=== PATIENT | male | born 1960 ===

== ENCOUNTER 2018-04-09 20:57 | Inpatient (IN) | payer MEDICAID ==
[2018-04-09 21:03] VITALS: BMI 25.2
--- NOTE | 2018-04-09 21:17 | CP.PCM.HP ---
History of Present Illness - History of Present Illness History of Present Illness: PMD: Dr Eden Chief Complaint: Left side weakness The patient was seen and examined on the Rehab Unit HPI: The hx is obtained from the patient and after review of the Radiological, laboratory and the medical records. This is a 57 years old male transferred from the [facility] for Rehabilitation. He has hx of DM, HTN and was admitted at the [facility] on 04/05/18 with diagnosis of acute CVA and left side weakness. The weakness at the left upper extremity has improved minimally, he is unstable on the left lower extremity and the left facial droop is the same. No headache, nausea, vomits, SOB, chest pain nor palpitation. No urinary symptoms but hje is constipated. PMH: HTN; DM II; HLD; PTSD; Depression; Psoriasis PSHJ: Right Tibial Surgery SH: On Disability; Uses Marijuana; Hx of Alcohol abuse; Former Smoker FH: Brother with Depression Allergies: NKDA Medication: Reviewed Present on Admission - Present on Admission Any Indicators Present on Admission: No History of DVT/PE: No History of Uncontrolled Diabetes: No Urinary Catheter: No Decubitus Ulcer Present: No Review of Systems - Constitutional Constitutional: absent: Anorexia, Chills, Fever, Headache - EENT Eyes: Requires Corrective Lenses. absent: Blurred Vision, Diplopia Ears: absent: Decreased Hearing, Ear Discharge, Tinnitus Nose/Mouth/Throat: Epistaxis, Nasal Congestion, Nasal Discharge, Sinus Pain, Sinus Pressure - Cardiovascular Cardiovascular: absent: Chest Pain, Dyspnea, Edema - Respiratory Respiratory: absent: Cough, Dyspnea, Hemoptysis, Wheezing, Stridor - Gastrointestinal Gastrointestinal: Constipation. absent: Abdominal Pain, Diarrhea, Nausea, Vomiting - Genitourinary Genitourinary: absent: Dysuria, Flank Pain, Hematuria - Musculoskeletal Musculoskeletal: Muscle Weakness. absent: Arthralgias, Back Pain, Numbness - Integumentary Integumentary: absent: Pruritus, Rash, Skin Ulcer, Sores, Striae, Swelling - Neurological Neurological: Focal Weakness. absent: Confusion, Dizziness, Headaches, Paresthesias - Psychiatric Psychiatric: Depression - Endocrine Endocrine: absent: Palpitations, Polydipsia, Polyphagia, Polyuria - Hematologic/Lymphatic Hematologic: absent: Easy Bleeding, Easy Bruising Past Patient History - Infectious Disease Hx of Infectious Diseases: None - Past Medical History & Family History Past Medical History?: Yes - Past Social History Smoking Status: Former Smoker Chewing Tobacco Use: No Cigar Use: No Alcohol: Social Drugs: Cannabis - CARDIAC Hx Hypercholesterolemia: Yes Hx Hypertension: Yes - PULMONARY Hx Respiratory Disorders: No - NEUROLOGICAL Hx Neurological Disorder: No HX Cerebrovascular Accident: Yes Hx Seizures: No - HEENT Hx HEENT Problems: No - RENAL Hx Chronic Kidney Disease: No - ENDOCRINE/METABOLIC Hx Diabetes Mellitus Type 2: Yes - HEMATOLOGICAL/ONCOLOGICAL Hx Blood Disorders: No - INTEGUMENTARY Hx Dermatological Problems: No - MUSCULOSKELETAL/RHEUMATOLOGICAL Hx Falls: No - GASTROINTESTINAL Hx Gastrointestinal Disorders: No - GENITOURINARY/GYNECOLOGICAL Hx Sexually Transmitted Disorders: No - PSYCHIATRIC Hx Anxiety: Yes Hx Depression: Yes Hx Post Traumatic Stress Disorder: Yes Hx Substance Use: No - SURGICAL HISTORY Hx Orthopedic Surgery: Yes (RT LEG SX) - ANESTHESIA Hx Anesthesia: Yes Hx Anesthesia Reactions: No Hx Malignant Hyperthermia: No Meds Allergies/Adverse Reactions: Allergies Allergy/AdvReac Type Severity Reaction Status Date / Time No Known Allergies Allergy Verified 04/05/18 17:05 Physical Exam - Constitutional Appears: No Acute Distress - Head Exam Head Exam: ATRAUMATIC, NORMOCEPHALIC - Eye Exam Eye Exam: EOMI, Normal appearance Pupil Exam: NORMAL ACCOMODATION, PERRL - ENT Exam ENT Exam: Mucous Membranes Moist, Normal Exam, Normal External Ear Exam - Neck Exam Neck exam: Positive for: Full Rom, Normal Inspection. Negative for: Lymphadenopathy, Tenderness - Respiratory Exam Respiratory Exam: Clear to Auscultation Bilateral. absent: Rales, Rhonchi, Wheezes - Cardiovascular Exam Cardiovascular Exam: REGULAR RHYTHM, RRR, +S1, +S2. absent: Gallop, JVD - GI/Abdominal Exam GI & Abdominal Exam: Normal Bowel Sounds, Soft. absent: Mass, Organomegaly, Tenderness - Rectal Exam Rectal Exam: Deferred - Extremities Exam Extremities exam: Positive for: normal inspection. Negative for: calf tenderness, full ROM - Back Exam Back exam: NORMAL INSPECTION. absent: CVA tenderness (L), CVA tenderness (R) - Neurological Exam Neurological exam: Alert, Oriented x3, Reflexes Normal Additional comments: Left facial droop with tongue deviated to the left. Motor strength of left upper extremity 3/5 and gifty left lower extremity 4/5 - Psychiatric Exam Psychiatric exam: Normal Affect, Normal Mood - Skin Skin Exam: Dry, Intact, Normal Color, Warm Results - Imaging and Cardiology Chest x-ray Status: Image reviewed by me, Report reviewed by me Additional comment: 04/05/2018 17:30 Chest X-Ray IMPRESSION: Suspect minor bibasilar atelectasis and or scarring left greater than right. Dictator: Sp Spain MD CTA Head and Neck Status: Report reviewed by me Additional comment: 04/05/2018 17:30 Head/Neck CTA IMPRESSION: No evidence of occlusion or significant stenosis despite some very minor calcified atherosclerotic plaque both cavernous carotid segments. No evidence of large aneurysm norvascular malformation. Dictator: Sp Spain MD CT scan - head Status: Image reviewed by me, Report reviewed by me Additional comment: 04/05/2018 17:[address] IMPRESSION: Mild diffuse and confluent chronic white matter ischemic changes seen extending perpherally into the deep white matter both cerebral hemispheres. In addition, there are multiple of bilateral basal nuclei lacunar type infarcts several of which are chronic in appearance and others age-indeterminate; and in particular one infarct in the superior right basal ganglia extending into the right bautista radiata could be acute.. Clinical correlation recommended. Moderate generaluzed volume loss. D Assessment & Plan - Assessment and Plan (Free Text) Assessment: #. Acute CVA #. HTN #. DM II #. HLD #. Depression Plan: 57 years old male transferred from the [facility] for Rehabilitation. He has hx of DM, HTN and was admitted at the [facility] on 04/05/18 with diagnosis of acute CVA and left side weakness. #. Acute right Basal ganglia CVA - Consult Dr Bradley the Last Dipper - ASA - Plavix For 20 days, then continue with ASA as monotherapy indefinitely - Atorvastatin - OT/PT - Follow up with Neurology Dr Borja after discharge #. HTN uncontrolled - Metoprolol/ Losartan/ Norvasc - Titrate for BP control #. DM II - Lispro sliding scale according to Accucheck ACHS - Meformin #. HLD. - Lipid panel showed elevated cholesterol and LDL - Atorvastatin #. Depression - Prozac/ Seroquel #. Stress ulcer Prophylaxis with Pantoprazole #. DVT Prophylaxis with Lovenox #. Code Status: Full - Date & Time Date: 04/09/18 Time: 21:17
[2018-04-09] MEDS: Insulin Lispro (humaLOG) 100 Units/ml Inj SC SCH (23:01)
[2018-04-10] MEDS ORDERED: Magnesium Hydroxide Susp 30 ml UD PO PRN (00:19)
[2018-04-10 06:22] LABS: INR 1.1; PROTHROMBIN TIME 12.9 Seconds (9.8-13.1)
[2018-04-10 06:25] LABS: PARTIAL THROMBOPLASTIN TIME 36.7 Seconds (25.6-37.1)
[2018-04-10 06:29] LABS: BASO % 0.4 % (0.0-2.0); EOS # 0.2 K/uL (0.0-0.7); EOS % 1.2 % (0.0-4.0); HEMOGLOBIN 14.2 g/dL (12.0-18.0); LYMPH # 1.5 K/uL (1.0-4.3); LYMPH % 12.4 % (20.0-40.0); MEAN CORPUSCULAR HEMOGLOBIN 31.4 pg (27.0-31.0); MEAN CORPUSCULAR HGB CONC 33.8 g/dL (33.0-37.0); MEAN PLATELET VOLUME 9.3 fl (7.2-11.7); MONO % 8.1 % (0.0-10.0); NEUT # 9.7 K/uL (1.8-7.0); NEUT % 77.9 % (50.0-75.0); NRBC % 0.1 % (0.0-0.0); RBC 4.52 Mil/uL (4.40-5.90); RED CELL DISTRIBUTION WIDTH 13.5 % (11.5-14.5); WHITE BLOOD COUNT 12.4 K/uL (4.8-10.8)
[2018-04-10 06:30] LABS: BLOOD UREA NITROGEN 29 mg/dl (9-20); CALCIUM 9.8 mg/dL (8.4-10.2); GFR NON-AFRICAN AMERICAN > 60
[2018-04-10] MEDS: Insulin Lispro (humaLOG) 100 Units/ml Inj SC SCH ×4 (07:38→21:48)
[2018-04-10] MEDS: Multivitamin With Minerals Tab PO SCH (09:09)
[2018-04-10] MEDS: Pantoprazole 40 mg EC Tab PO SCH (09:10)
[2018-04-10] MEDS: Enoxaparin 40 mg Syringe SC SCH (11:14)
--- NOTE | 2018-04-10 18:07 | PCM.OPOC ---
Physiatry Overall Plan of Care - Overall Plan of Care Estimated Length of Stay in Weeks: 2 Rehab Impairment: Mobility, Gait, Speech, Balance, Coordination Etiologic Diagnosis: Cerebrovascular Accident Rehab/Medical Prognosis: Fair - Anticipated Interventions Physical Therapy:: Yes Occupational Therapy:: Yes Speech Therapy:: Yes Recreational Therapy:: Yes - Therapy Goals Bed Mobility: Independent Ambulation: Independent Functional Positional Changes:: Independent - Discharge Plan Identification of Barriers to Discharge: Home Situation Discharge Destination: Home
--- NOTE | 2018-04-10 18:09 | CP.PCM.CON ---
History of Present Illness - History of Present Illness History of Present Illness: Dr Bradley PMR consultation on Gary Fuchs, born 1960, who has been admitted to [facility] for acute inpatient rehabilitation following a right CVA MCA distribution with a left UE>LE weakness. There is facial droop and some dysarthria/dysphagia as well. Previously very independent Review of Systems - Constitutional Constitutional: absent: Chills - EENT Eyes: absent: Change in Vision Ears: absent: Ear Discharge, Ear Pain Nose/Mouth/Throat: absent: Nasal Congestion, Nasal Discharge - Cardiovascular Cardiovascular: absent: Chest Pain, Chest Pain at Rest, Leg Edema - Respiratory Respiratory: absent: Cough, Dyspnea on Exertion, Wheezing - Gastrointestinal Gastrointestinal: absent: Belching, Constipation - Musculoskeletal Musculoskeletal: absent: Back Pain - Integumentary Integumentary: absent: Wounds - Psychiatric Psychiatric: absent: Anxiety Past Patient History - Infectious Disease Hx of Infectious Diseases: None - Past Medical History & Family History Past Medical History?: Yes - Past Social History Smoking Status: Former Smoker Chewing Tobacco Use: No Cigar Use: No Alcohol: Social Drugs: Cannabis - CARDIAC Hx Hypertension: Yes - PULMONARY Hx Chronic Obstructive Pulmonary Disease (COPD): No - NEUROLOGICAL HX Cerebrovascular Accident: Yes - HEENT Hx HEENT Problems: No - RENAL Hx Renal Failure: No - ENDOCRINE/METABOLIC Hx Diabetes Mellitus Type 2: Yes - HEMATOLOGICAL/ONCOLOGICAL Hx Blood Disorders: No - INTEGUMENTARY Hx Dermatological Problems: No - MUSCULOSKELETAL/RHEUMATOLOGICAL Hx Arthritis: No - GASTROINTESTINAL Hx Gastrointestinal Disorders: No - GENITOURINARY/GYNECOLOGICAL Hx Sexually Transmitted Disorders: No - PSYCHIATRIC Hx Anxiety: Yes Hx Depression: Yes Hx Post Traumatic Stress Disorder: Yes Hx Substance Use: No - SURGICAL HISTORY Hx Orthopedic Surgery: Yes (RT LEG SX) - ANESTHESIA Hx Anesthesia: Yes Hx Anesthesia Reactions: No Hx Malignant Hyperthermia: No Meds Allergies/Adverse Reactions: Allergies Allergy/AdvReac Type Severity Reaction Status Date / Time No Known Allergies Allergy Verified 04/05/18 17:05 - Medications Medications: Current Medications Acetaminophen (Tylenol 325mg Tab) 650 mg PO Q4 PRN PRN Reason: Fever >100.4 F Last Admin: 04/10/18 11:12 Dose: 650 mg Amlodipine Besylate (Norvasc) 10 mg PO DAILY [facility] Last Admin: 04/10/18 10:25 Dose: 10 mg Aspirin (Aspirin Chewable) 81 mg PO DAILY [facility] Last Admin: 04/10/18 09:03 Dose: 81 mg Atorvastatin Calcium (Lipitor) 40 mg PO DAILY [facility] Last Admin: 04/10/18 09:10 Dose: 40 mg Clopidogrel Bisulfate (Plavix) 75 mg PO DAILY [facility] Last Admin: 04/10/18 09:07 Dose: 75 mg Docusate Sodium (Colace) 100 mg PO BID [facility] Last Admin: 04/10/18 17:26 Dose: 100 mg Enoxaparin Sodium (Lovenox) 40 mg SC DAILY [facility]; Protocol Last Admin: 04/10/18 11:14 Dose: 40 mg Fluoxetine HCl (Prozac) 20 mg PO DAILY [facility] Last Admin: 04/10/18 09:09 Dose: 20 mg Insulin Human Lispro (Humalog) 0 units SC [facility]; Protocol Last Admin: 04/10/18 17:23 Dose: Not Given Losartan Potassium (Cozaar) 25 mg PO DAILY [facility] Last Admin: 04/10/18 10:22 Dose: 25 mg Magnesium Hydroxide (Milk Of Magnesia) 30 ml PO DAILY PRN PRN Reason: Constipation Metformin HCl (Glucophage) 500 mg PO BIDWM [facility] Last Admin: 04/10/18 17:25 Dose: 500 mg Metoprolol Tartrate (Lopressor) 25 mg PO BID [facility] Last Admin: 04/10/18 17:26 Dose: 25 mg Multivitamins/Minerals (Therapeutic-M Tab) 1 tab PO DAILY [facility] Last Admin: 04/10/18 09:09 Dose: 1 tab Pantoprazole Sodium (Protonix Ec Tab) 40 mg PO DAILY [facility] Last Admin: 04/10/18 09:10 Dose: 40 mg Quetiapine Fumarate (Seroquel) 100 mg PO HS [facility] Last Admin: 04/09/18 23:00 Dose: 100 mg Physical Exam - Constitutional Appears: Non-toxic, No Acute Distress - Head Exam Head Exam: ATRAUMATIC, NORMAL INSPECTION, NORMOCEPHALIC - Eye Exam Eye Exam: EOMI - ENT Exam ENT Exam: Mucous Membranes Moist - Respiratory Exam Respiratory Exam: NORMAL BREATHING PATTERN - Cardiovascular Exam Cardiovascular Exam: REGULAR RHYTHM - GI/Abdominal Exam GI & Abdominal Exam: Normal Bowel Sounds. absent: Firm - Extremities Exam Extremities exam: Negative for: calf tenderness - Neurological Exam Neurological exam: Alert, Oriented x3 - Expanded Neurological Exam Expanded Patient oriented to: person, place, time Speech: Slurred Speech Neuro motor strength exam: Left Upper Extremity: 2/1 (proximal 0/5 distal), Right Upper Extremity: 5, Left Lower Extremity: 5, Right Lower Extremity: 5 Coma Scale Eye Opening: SPONTANEOUS Coma Scale Motor Response: OBEYS COMMANDS Coma Scale Verbal: Oriented Coma Scale Total: 15 - Psychiatric Exam Psychiatric exam: Normal Affect, Normal Mood - Skin Skin Exam: Warm Results - Vital Signs Recent Vital Signs: Last Vital Signs Temp 98.2 F 04/10/18 09:40 Pulse 83 04/10/18 17:26 Resp 18 04/10/18 09:40 BP 138/67 04/10/18 17:26 Pulse Ox 98 04/10/18 09:40 - Labs Result Diagrams: 04/10/18 06:00 04/10/18 06:00 Labs: Laboratory Results - last 24 hr 04/09/18 04/10/18 04/10/18 22:02 06:00 06:00 WBC 12.4 H RBC 4.52 Hgb 14.2 Hct 42.0 MCV 93.0 MCH 31.4 H MCHC 33.8 RDW 13.5 Plt Count 235 MPV 9.3 Neut % (Auto) 77.9 H Lymph % (Auto) 12.4 L [place] % (Auto) 8.1 Eos % (Auto) 1.2 Baso % (Auto) 0.4 Neut # (Auto) 9.7 H Lymph # (Auto) 1.5 [place] # (Auto) 1.0 H Eos # (Auto) 0.2 Baso # (Auto) 0.0 PT INR APTT Sodium 139 Potassium 4.6 Chloride 98 Carbon Dioxide 28 Anion Gap 18 BUN 29 H Creatinine 1.2 Est GFR ( Amer) > 60 Est GFR (Non-Af Amer) > 60 POC Glucose (mg/dL) 88 Random Glucose 107 Calcium 9.8 04/10/18 04/10/18 04/10/18 06:00 06:52 10:56 WBC RBC Hgb Hct MCV MCH MCHC RDW Plt Count MPV Neut % (Auto) Lymph % (Auto) [place] % (Auto) Eos % (Auto) Baso % (Auto) Neut # (Auto) Lymph # (Auto) [place] # (Auto) Eos # (Auto) Baso # (Auto) PT 12.9 INR 1.1 APTT 36.7 Sodium Potassium Chloride Carbon Dioxide Anion Gap BUN Creatinine Est GFR ( Amer) Est GFR (Non-Af Amer) POC Glucose (mg/dL) 92 145 H Random Glucose Calcium 04/10/18 15:42 WBC RBC Hgb Hct MCV MCH MCHC RDW Plt Count MPV Neut % (Auto) Lymph % (Auto) [place] % (Auto) Eos % (Auto) Baso % (Auto) Neut # (Auto) Lymph # (Auto) [place] # (Auto) Eos # (Auto) Baso # (Auto) PT INR APTT Sodium Potassium Chloride Carbon Dioxide Anion Gap BUN Creatinine Est GFR ( Amer) Est GFR (Non-Af Amer) POC Glucose (mg/dL) 114 H Random Glucose Calcium Assessment & Plan - Assessment and Plan (Free Text) Assessment: PT/OT to continue to help increase functional independence Team conference for d/c planning Pain: controlled Vascular: no evidence of DVT GI: No evidence of constipation or diarrhea Impairment code 01.1 Patient is an excellent acute rehabilitation candidate and will have focused speech, PT, OT and recreational therapy to help facilitate a safe and appropri ate d/c plan
[2018-04-11] MEDS: Insulin Lispro (humaLOG) 100 Units/ml Inj SC SCH ×4 (06:30→21:01)
[2018-04-11 08:10] LABS: URINE BILIRUBIN NEGATIVE (NEGATIVE); URINE BLOOD NEGATIVE (NEGATIVE); URINE CLARITY SLIGHTY-CLOUDY (Clear); URINE COLOR YELLOW (YELLOW); URINE GLUCOSE (UA) NEG (NEGATIVE); URINE HYALINE CAST 0-2 /hpf (0-2); URINE LEUKOCYTE ESTERASE NEG Leu/uL (Negative); URINE PROTEIN 30 mg/dL (NEGATIVE); URINE UROBILINOGEN 0.2-1.0 mg/dL (0.2-1.0)
[2018-04-11] MEDS: Pantoprazole 40 mg EC Tab PO SCH (08:44)
[2018-04-11] MEDS: Multivitamin With Minerals Tab PO SCH (08:45)
[2018-04-11] MEDS: Enoxaparin 40 mg Syringe SC SCH (08:45)
--- NOTE | 2018-04-11 09:21 | CP.PCM.PN ---
Subjective - Date & Time of Evaluation Date of Evaluation: 04/11/18 Time of Evaluation: 09:21 - Subjective Subjective: participating well with PT no complaints hd stable nad Objective - Vital Signs/Intake and Output Vital Signs (last 24 hours): Temp Pulse Resp BP Pulse Ox 98.1 F 82 20 130/80 98 04/10/18 20:45 04/11/18 08:46 04/10/18 23:22 04/11/18 08:46 04/10/18 23:22 Intake and Output: Vitals Reviewed GEN: WDWN, alert, cooperative HEENT: NCAT, PERRL, EOMI HEART: RRR, +S1S2, NO MRG LUNG: CTAB, NO WRR ABD: soft, NT, ND, No HSM, No masses EXT: normal pedal pulses NEURO: awake, alert SKIN: warm, dry PSYCH: normal mood, normal affect - Medications Medications: Current Medications Acetaminophen (Tylenol 325mg Tab) 650 mg PO Q4 PRN PRN Reason: Fever >100.4 F Last Admin: 04/10/18 11:12 Dose: 650 mg Amlodipine Besylate (Norvasc) 10 mg PO DAILY [facility] Last Admin: 04/11/18 08:44 Dose: 10 mg Aspirin (Aspirin Chewable) 81 mg PO DAILY [facility] Last Admin: 04/11/18 08:44 Dose: 81 mg Atorvastatin Calcium (Lipitor) 40 mg PO DAILY [facility] Last Admin: 04/11/18 08:47 Dose: 40 mg Clopidogrel Bisulfate (Plavix) 75 mg PO DAILY [facility] Last Admin: 04/11/18 08:46 Dose: 75 mg Docusate Sodium (Colace) 100 mg PO BID [facility] Last Admin: 04/11/18 08:44 Dose: 100 mg Enoxaparin Sodium (Lovenox) 40 mg SC DAILY [facility]; Protocol Last Admin: 04/11/18 08:45 Dose: 40 mg Fluoxetine HCl (Prozac) 20 mg PO DAILY [facility] Last Admin: 04/11/18 08:46 Dose: 20 mg Insulin Human Lispro (Humalog) 0 units SC [facility]; Protocol Last Admin: 04/11/18 06:30 Dose: Not Given Losartan Potassium (Cozaar) 25 mg PO DAILY [facility] Last Admin: 04/10/18 10:22 Dose: 25 mg Magnesium Hydroxide (Milk Of Magnesia) 30 ml PO DAILY PRN PRN Reason: Constipation Metformin HCl (Glucophage) 500 mg PO BIDWM [facility] Last Admin: 04/11/18 08:44 Dose: 500 mg Metoprolol Tartrate (Lopressor) 25 mg PO BID [facility] Last Admin: 04/11/18 08:46 Dose: 25 mg Multivitamins/Minerals (Therapeutic-M Tab) 1 tab PO DAILY [facility] Last Admin: 04/11/18 08:45 Dose: 1 tab Pantoprazole Sodium (Protonix Ec Tab) 40 mg PO DAILY [facility] Last Admin: 04/11/18 08:44 Dose: 40 mg Quetiapine Fumarate (Seroquel) 100 mg PO HS [facility] Last Admin: 04/10/18 21:58 Dose: 100 mg - Labs Labs: 04/10/18 06:00 04/10/18 06:00 PT 12.9 Seconds (9.8-13.1) 04/10/18 06:00 INR 1.1 04/10/18 06:00 APTT 36.7 Seconds (25.6-37.1) 04/10/18 06:00 Assessment and Plan - Assessment and Plan (Free Text) Plan: 57 years old male transferred from the [facility] ([facility] for Re habilitation. He has hx of DM, HTN and was admitted at the [facility] on 04/05/18 with diagnosis of acute CVA and left side weakness. #. Acute right Basal ganglia CVA - Consult Dr Bradley the Systems Mgr - ASA - Plavix For 20 days, then continue with ASA as monotherapy indefinitely - Atorvastatin - OT/PT - Follow up with Neurology Dr Borja after discharge #. HTN uncontrolled - Metoprolol/ Losartan/ Norvasc - Titrate for BP control #. DM II - Lispro sliding scale according to Accucheck ACHS - Meformin #. HLD. - Lipid panel showed elevated cholesterol and LDL - Atorvastatin #. Depression - Prozac/ Seroquel #. Stress ulcer Prophylaxis with Pantoprazole #. DVT Prophylaxis with Lovenox #. Code Status: Full
--- NOTE | 2018-04-11 18:42 | CP.PCM.PN ---
Subjective - Date & Time of Evaluation Date of Evaluation: 04/11/18 Time of Evaluation: 18:39 - Subjective Subjective: patient seen in the room in good spirits feels better Objective - Vital Signs/Intake and Output Vital Signs (last 24 hours): Temp Pulse Resp BP Pulse Ox 98 F 78 20 120/80 98 04/11/18 08:00 04/11/18 16:51 04/11/18 08:00 04/11/18 16:51 04/11/18 08:00 - Medications Medications: Current Medications Acetaminophen (Tylenol 325mg Tab) 650 mg PO Q4 PRN PRN Reason: Fever >100.4 F Last Admin: 04/10/18 11:12 Dose: 650 mg Amlodipine Besylate (Norvasc) 10 mg PO DAILY [facility] Last Admin: 04/11/18 08:44 Dose: 10 mg Aspirin (Aspirin Chewable) 81 mg PO DAILY [facility] Last Admin: 04/11/18 08:44 Dose: 81 mg Atorvastatin Calcium (Lipitor) 40 mg PO DAILY [facility] Last Admin: 04/11/18 08:47 Dose: 40 mg Clopidogrel Bisulfate (Plavix) 75 mg PO DAILY [facility] Last Admin: 04/11/18 08:46 Dose: 75 mg Docusate Sodium (Colace) 100 mg PO BID [facility] Last Admin: 04/11/18 16:50 Dose: 100 mg Enoxaparin Sodium (Lovenox) 40 mg SC DAILY [facility]; Protocol Last Admin: 04/11/18 08:45 Dose: 40 mg Fluoxetine HCl (Prozac) 20 mg PO DAILY [facility] Last Admin: 04/11/18 08:46 Dose: 20 mg Insulin Human Lispro (Humalog) 0 units SC [facility]; Protocol Last Admin: 04/11/18 16:50 Dose: Not Given Losartan Potassium (Cozaar) 25 mg PO DAILY [facility] Last Admin: 04/11/18 09:00 Dose: 25 mg Magnesium Hydroxide (Milk Of Magnesia) 30 ml PO DAILY PRN PRN Reason: Constipation Metformin HCl (Glucophage) 500 mg PO BIDWM [facility] Last Admin: 04/11/18 16:50 Dose: 500 mg Metoprolol Tartrate (Lopressor) 25 mg PO BID [facility] Last Admin: 04/11/18 16:51 Dose: 25 mg Multivitamins/Minerals (Therapeutic-M Tab) 1 tab PO DAILY [facility] Last Admin: 04/11/18 08:45 Dose: 1 tab Pantoprazole Sodium (Protonix Ec Tab) 40 mg PO DAILY [facility] Last Admin: 04/11/18 08:44 Dose: 40 mg Quetiapine Fumarate (Seroquel) 100 mg PO HS [facility] Last Admin: 04/10/18 21:58 Dose: 100 mg - Labs Labs: 04/10/18 06:00 04/10/18 06:00 PT 12.9 Seconds (9.8-13.1) 04/10/18 06:00 INR 1.1 04/10/18 06:00 APTT 36.7 Seconds (25.6-37.1) 04/10/18 06:00 - Constitutional Appears: Well, Non-toxic, No Acute Distress - Head Exam Head Exam: ATRAUMATIC, NORMAL INSPECTION, NORMOCEPHALIC - Eye Exam Eye Exam: EOMI - ENT Exam ENT Exam: Mucous Membranes Moist - Respiratory Exam Respiratory Exam: NORMAL BREATHING PATTERN - Cardiovascular Exam Cardiovascular Exam: REGULAR RHYTHM - GI/Abdominal Exam GI & Abdominal Exam: Distended. absent: Guarding - Extremities Exam Extremities Exam: absent: Calf Tenderness - Neurological Exam Neuro motor strength exam: Left Upper Extremity: 0 (distal but some return in the wrist and 3+/5 proximal), Right Upper Extremity: 5, Left Lower Extremity: 5, Right Lower Extremity: 5 - Psychiatric Exam Psychiatric exam: Normal Affect, Normal Mood - Skin Skin Exam: Warm Assessment and Plan - Assessment and Plan (Free Text) Assessment: 57 year old male with right MCA CVA and left UE plegia that is improving with some wrist movement that was not present yesterday ambulating 200' PT/OT to continue to help increase functional independence Team conference for d/c planning Pain: controlled Vascular: no evidence of DVT GI: No evidence of constipation or diarrhea Patient continues to be an excellent acute rehabilitation candidate and will have continued focused speech, PT, OT and recreational therapy to help facilitate a safe and appropriate d/c plan
--- NOTE | 2018-04-11 21:26 | PCM.RRT ---
GENERAL LABOR Nurse Assessment - Situation GENERAL LABOR Responder Arrival Time: 21:00 Location: Acute Rehab Room Number: 621 GENERAL LABOR Reason for Call: Possible Stroke GENERAL LABOR Called By: RN - IV IV Inserted during GENERAL LABOR?: Yes New IV Insertion Tolerance:: Excellent - Respiratory Oxygen Delivery Method: Room Air (97% saturation on room air ) Received Nebulizer Treatments: No Was the Patient Ventilated with Bag/Mask 100% O2?: No Secretions Suctioned?: No Was the Patient Intubated?: No Was the Patient Placed on a Ventilator?: No - Diagnostic Test Ordered EKG: No Chest X-Ray: No CT Scan: Yes (to rule out intracranial bleed) CPR started during GENERAL LABOR?: No - [place] Coma Scale Coma Scale Eye Opening: Spontaneous Coma Scale Motor: Obeys Commands Movement Coma Scale Verbal: Oriented Coma Scale Total: 15 - Time GENERAL LABOR Ended Time GENERAL LABOR Ended: 21:17 - Vital Signs at end of GENERAL LABOR Vital Signs at end of GENERAL LABOR: BP: 160/111; HR: 74; RR: 20; O2 saturation: 97% on room air - Recommendations GENERAL LABOR Level of Care Recommendations: Remain in current setting I.Reason for GENERAL LABOR - A) Acute Change in Patient: (Select all that apply): Staff member or family is worried about patient Subjective: 57 yo male admitted for acute rehabilitation s/p acute CVA and left side weakness. GENERAL LABOR called by RN as patient was stating he has left sided numbness of the corner of his mouth. Denies chest pain, shortness of breath, headaches or changes in vision. Patient is oriented to person, place and time and is in no acute distress at this time. V/S: 182/112; HR: 75; O2 saturation: 98% room air; Temp: 97.8 Interventions: - IV insertion -Xanax given at 2107 -Seroquel given at 2107 -Clonidine 0.2mg given at 21:13 for elevated BP; BP decreased from 182/112 to 160/111. - Neurological Status (Select all that apply): Alert, Responsive, Oriented, Verbal, Follows Commands - Respiratory Oxygen Delivery Method: Room Air - Constitutional Appears: Well, No Acute Distress Additional Comments: Residual Left sided facial droop - Eyes Eye Exam: Normal appearance - Neurological Exam Neurological Exam: Alert, Awake, Oriented x3 - Extremities Exam Extremities Exam: Normal Capillary Refill, Normal Inspection Additional comments: Left sided residual weakness of arm and legs. Plan - Assessment of Findings&Treatment Plan 57 yo male admitted to [facility] acute rehab s/p acute CVA with left sided weakness GENERAL LABOR called for new onset left sided facial numbness. Plan: - Left sided facial numbness could be secondary to previous Left sided CVA - Patient to remain in current setting. - Clonidine given, resulted in decrease of BP from 180/112 to 160/111. - Patient asymptomatic other than the facial numbness - CT of head without contrast to rule out cranial bleed and for baseline. - Xanax and Seroquel given at this time. End V/S: BP: 160/111 HR: 74; RR: 20 ; O2 saturation: 97% room air.
[2018-04-12] MEDS: Insulin Lispro (humaLOG) 100 Units/ml Inj SC SCH ×4 (06:30→21:19)
[2018-04-12] MEDS: Multivitamin With Minerals Tab PO SCH (08:41)
[2018-04-12] MEDS: Enoxaparin 40 mg Syringe SC SCH (08:41)
[2018-04-12] MEDS: Pantoprazole 40 mg EC Tab PO SCH (08:43)
--- NOTE | 2018-04-12 08:51 | CT ---
Date of service: 04/11/2018 PROCEDURE: CT HEAD WITHOUT CONTRAST. HISTORY: rule out stroke COMPARISON: None available. TECHNIQUE: Axial computed tomography images were obtained through the head/brain without intravenous contrast. Supplemental Coronal and Sagittal projections created and reviewed. Radiation dose: Total exam DLP = 662.45 mGy-cm. This CT exam was performed using one or more of the following dose reduction techniques: Automated exposure control, adjustment of the mA and/or kV according to patient size, and/or use of iterative reconstruction technique. FINDINGS: HEMORRHAGE: No intracranial hemorrhage. BRAIN: No mass effect or edema. Cortical and cerebellar atrophy, periventricular small vessel disease. Evidence of old deep white matter infarction at the level of the right lateral ventricle. Additional punctate basal ganglia areas of infarction noted. VENTRICLES: Unremarkable. No hydrocephalus. CALVARIUM: Unremarkable. PARANASAL SINUSES: Unremarkable as visualized. No significant inflammatory changes. MASTOID AIR CELLS: Unremarkable as visualized. No inflammatory changes. OTHER FINDINGS: None. IMPRESSION: No acute intracranial abnormalities. No significant findings to account for the clinical presentation. Concordant results (preliminary interpretation) provided by Suo Yi. Procedure Completed: 21:45. Preliminary Report: Dictated and Authenticated: 22:41. Final Interpretation: 08:43. April 12, 2018
[2018-04-13] MEDS: Insulin Lispro (humaLOG) 100 Units/ml Inj SC SCH ×3 (06:51→17:00)
[2018-04-13 06:56] LABS: HEMOGLOBIN 13.8 g/dL (12.0-18.0); MEAN CELL VOLUME 93.2 fl (80.0-94.0); MEAN CORPUSCULAR HEMOGLOBIN 31.4 pg (27.0-31.0); MEAN CORPUSCULAR HGB CONC 33.7 g/dL (33.0-37.0); RBC 4.38 Mil/uL (4.40-5.90); RED CELL DISTRIBUTION WIDTH 13.8 % (11.5-14.5); WHITE BLOOD COUNT 7.6 K/uL (4.8-10.8)
[2018-04-13 07:43] LABS: BLOOD UREA NITROGEN 23 mg/dl (9-20); CALCIUM 9.4 mg/dL (8.4-10.2); GFR NON-AFRICAN AMERICAN > 60
[2018-04-13] MEDS: Oxycodone/Acetaminophen 5/325 mg Tab PO PRN ×2 (08:41→18:01)
[2018-04-13] MEDS: Enoxaparin 40 mg Syringe SC SCH (08:46)
[2018-04-13] MEDS: Multivitamin With Minerals Tab PO SCH (08:47)
[2018-04-13] MEDS: Pantoprazole 40 mg EC Tab PO SCH (08:47)
[2018-04-14] MEDS: Insulin Lispro (humaLOG) 100 Units/ml Inj SC SCH ×2 (06:45→17:09)
[2018-04-14] MEDS: Oxycodone/Acetaminophen 5/325 mg Tab PO PRN ×2 (08:12→19:45)
[2018-04-14] MEDS: Multivitamin With Minerals Tab PO SCH (08:16)
[2018-04-14] MEDS: Pantoprazole 40 mg EC Tab PO SCH (08:16)
[2018-04-14] MEDS: Enoxaparin 40 mg Syringe SC SCH (08:23)
--- NOTE | 2018-04-14 10:51 | CP.PCM.PN ---
Subjective - Date & Time of Evaluation Date of Evaluation: 04/14/18 Time of Evaluation: 10:51 - Subjective Subjective: doing well with PT no complaints hd stable nad Objective - Vital Signs/Intake and Output Vital Signs (last 24 hours): Temp Pulse Resp BP Pulse Ox 97.2 F L 62 18 150/98 H 96 04/14/18 07:39 04/14/18 08:17 04/14/18 07:39 04/14/18 08:17 04/14/18 07:39 - Medications Medications: Current Medications Acetaminophen (Tylenol 325mg Tab) 650 mg PO Q4 PRN PRN Reason: Fever >100.4 F Last Admin: 04/10/18 11:12 Dose: 650 mg Acetaminophen (Tylenol 325mg Tab) 650 mg PO Q4 PRN PRN Reason: Pain, moderate (4-7) Amlodipine Besylate (Norvasc) 10 mg PO DAILY [facility] Last Admin: 04/14/18 08:15 Dose: 10 mg Aspirin (Aspirin Chewable) 81 mg PO DAILY [facility] Last Admin: 04/14/18 08:17 Dose: 81 mg Atorvastatin Calcium (Lipitor) 40 mg PO DAILY [facility] Last Admin: 04/14/18 08:15 Dose: 40 mg Clopidogrel Bisulfate (Plavix) 75 mg PO DAILY [facility] Last Admin: 04/14/18 08:16 Dose: 75 mg Docusate Sodium (Colace) 100 mg PO BID [facility] Last Admin: 04/14/18 08:16 Dose: 100 mg Enoxaparin Sodium (Lovenox) 40 mg SC DAILY [facility]; Protocol Last Admin: 04/14/18 08:23 Dose: 40 mg Fluoxetine HCl (Prozac) 20 mg PO DAILY [facility] Last Admin: 04/14/18 08:17 Dose: 20 mg Insulin Human Lispro (Humalog) 0 units SC BD [facility]; Protocol Last Admin: 04/14/18 06:45 Dose: Not Given Losartan Potassium (Cozaar) 25 mg PO DAILY [facility] Last Admin: 04/14/18 08:17 Dose: 25 mg Magnesium Hydroxide (Milk Of Magnesia) 30 ml PO DAILY PRN PRN Reason: Constipation Metformin HCl (Glucophage) 500 mg PO BIDWM [facility] Last Admin: 04/14/18 07:45 Dose: 500 mg Metoprolol Tartrate (Lopressor) 25 mg PO BID [facility] Last Admin: 04/14/18 08:17 Dose: 25 mg Multivitamins/Minerals (Therapeutic-M Tab) 1 tab PO DAILY [facility] Last Admin: 04/14/18 08:16 Dose: 1 tab Oxycodone/Acetaminophen (Percocet 5/325 Mg Tab) 1 tab PO Q6 PRN PRN Reason: Pain, severe (8-10) Stop: 04/16/18 08:03 Last Admin: 04/14/18 08:12 Dose: 1 tab Pantoprazole Sodium (Protonix Ec Tab) 40 mg PO DAILY [facility] Last Admin: 04/14/18 08:16 Dose: 40 mg Quetiapine Fumarate (Seroquel) 100 mg PO HS [facility] Last Admin: 04/13/18 21:23 Dose: 100 mg - Labs Labs: 04/13/18 05:30 04/13/18 05:30 PT 12.9 Seconds (9.8-13.1) 04/10/18 06:00 INR 1.1 04/10/18 06:00 APTT 36.7 Seconds (25.6-37.1) 04/10/18 06:00 - Constitutional Appears: Non-toxic, No Acute Distress - Head Exam Head Exam: ATRAUMATIC, NORMOCEPHALIC - Eye Exam Eye Exam: EOMI, Normal appearance, PERRL Pupil Exam: NORMAL ACCOMODATION - ENT Exam ENT Exam: Mucous Membranes Moist, Normal Exam - Respiratory Exam Respiratory Exam: Clear to Ausculation Bilateral, NORMAL BREATHING PATTERN - Cardiovascular Exam Cardiovascular Exam: RRR, +S1, +S2 - GI/Abdominal Exam GI & Abdominal Exam: Soft, Normal Bowel Sounds - Extremities Exam Extremities Exam: Full ROM, Normal Capillary Refill - Back Exam Back Exam: absent: CVA tenderness (L), CVA tenderness (R) - Neurological Exam Neurological Exam: Alert, Awake - Psychiatric Exam Psychiatric exam: Normal Affect, Normal Mood - Skin Skin Exam: Dry, Warm Assessment and Plan - Assessment and Plan (Free Text) Plan: 57 years old male transferred from the [facility]. He has hx of DM, HTN and was admitted at the [facility] on 04/05/18 with diagnosis of acute CVA and left side weakness. #. Acute right Basal ganglia CVA - Consult Dr Bradley the Controls Design Engineer - ASA - Plavix For 20 days, then continue with ASA as monotherapy indefinitely - Atorvastatin - OT/PT - Follow up with Neurology Dr Borja after discharge #. HTN uncontrolled - Metoprolol/ Losartan/ Norvasc - Titrate for BP control #. DM II - Lispro sliding scale according to Accucheck ACHS - Meformin #. HLD. - Lipid panel showed elevated cholesterol and LDL - Atorvastatin #. Depression - Prozac/ Seroquel #. Stress ulcer Prophylaxis with Pantoprazole #. DVT Prophylaxis with Lovenox #. Code Status: Full
--- NOTE | 2018-04-14 17:48 | CP.PCM.PN ---
Subjective - Date & Time of Evaluation Date of Evaluation: 04/14/18 Time of Evaluation: 17:47 - Subjective Subjective: Patient seen in the room doing well + dysarthria in good spirits feels therapy is helpful denies sob/cp Objective - Vital Signs/Intake and Output Vital Signs (last 24 hours): Temp Pulse Resp BP Pulse Ox 97.2 F L 76 18 151/87 H 96 04/14/18 07:39 04/14/18 17:30 04/14/18 07:39 04/14/18 17:30 04/14/18 07:39 - Medications Medications: Current Medications Acetaminophen (Tylenol 325mg Tab) 650 mg PO Q4 PRN PRN Reason: Fever >100.4 F Last Admin: 04/10/18 11:12 Dose: 650 mg Acetaminophen (Tylenol 325mg Tab) 650 mg PO Q4 PRN PRN Reason: Pain, moderate (4-7) Amlodipine Besylate (Norvasc) 10 mg PO DAILY [facility] Last Admin: 04/14/18 08:15 Dose: 10 mg Aspirin (Aspirin Chewable) 81 mg PO DAILY [facility] Last Admin: 04/14/18 08:17 Dose: 81 mg Atorvastatin Calcium (Lipitor) 40 mg PO DAILY [facility] Last Admin: 04/14/18 08:15 Dose: 40 mg Clopidogrel Bisulfate (Plavix) 75 mg PO DAILY [facility] Last Admin: 04/14/18 08:16 Dose: 75 mg Docusate Sodium (Colace) 100 mg PO BID [facility] Last Admin: 04/14/18 17:30 Dose: 100 mg Enoxaparin Sodium (Lovenox) 40 mg SC DAILY [facility]; Protocol Last Admin: 04/14/18 08:23 Dose: 40 mg Fluoxetine HCl (Prozac) 20 mg PO DAILY [facility] Last Admin: 04/14/18 08:17 Dose: 20 mg Insulin Human Lispro (Humalog) 0 units SC ACBD [facility]; Protocol Last Admin: 04/14/18 17:09 Dose: Not Given Losartan Potassium (Cozaar) 50 mg PO DAILY [facility] Magnesium Hydroxide (Milk Of Magnesia) 30 ml PO DAILY PRN PRN Reason: Constipation Metformin HCl (Glucophage) 500 mg PO BIDWM [facility] Last Admin: 04/14/18 17:29 Dose: 500 mg Metoprolol Tartrate (Lopressor) 25 mg PO BID [facility] Last Admin: 04/14/18 17:30 Dose: 25 mg Multivitamins/Minerals (Therapeutic-M Tab) 1 tab PO DAILY [facility] Last Admin: 04/14/18 08:16 Dose: 1 tab Oxycodone/Acetaminophen (Percocet 5/325 Mg Tab) 1 tab PO Q6 PRN PRN Reason: Pain, severe (8-10) Stop: 04/16/18 08:03 Last Admin: 04/14/18 08:12 Dose: 1 tab Pantoprazole Sodium (Protonix Ec Tab) 40 mg PO DAILY [facility] Last Admin: 04/14/18 08:16 Dose: 40 mg Quetiapine Fumarate (Seroquel) 100 mg PO HS [facility] Last Admin: 04/13/18 21:23 Dose: 100 mg - Labs Labs: 04/13/18 05:30 04/13/18 05:30 PT 12.9 Seconds (9.8-13.1) 04/10/18 06:00 INR 1.1 04/10/18 06:00 APTT 36.7 Seconds (25.6-37.1) 04/10/18 06:00
[2018-04-15] MEDS: Insulin Lispro (humaLOG) 100 Units/ml Inj SC SCH ×2 (06:33→17:02)
[2018-04-15] MEDS: Oxycodone/Acetaminophen 5/325 mg Tab PO PRN (08:55)
[2018-04-15] MEDS: Pantoprazole 40 mg EC Tab PO SCH (08:57)
[2018-04-15] MEDS: Enoxaparin 40 mg Syringe SC SCH (08:57)
[2018-04-15] MEDS: Multivitamin With Minerals Tab PO SCH (09:06)
--- NOTE | 2018-04-15 13:11 | PCM.PSYTMC ---
Acute Rehab Team Conference - - Vital Signs: Vital Signs (Last 8 Hours): Vital Signs 04/15/18 04/15/18 04/15/18 07:33 09:00 09:04 Temperature 97.2 F L 97.2 F L Pulse Rate 58 L 76 76 Respiratory 18 18 Rate Blood Pressure 106/68 132/76 132/76 O2 Sat by Pulse 100 Oximetry 04/15/18 09:05 Temperature Pulse Rate 76 Respiratory Rate Blood Pressure 132/76 O2 Sat by Pulse Oximetry Pain: 0 - Precautions: Precautions: Fall Prevention, Aspiration, Seizure - Medications/Other Issues: Comment: complained of back pain with b/p elavation at night ordered percocet with pain - Consults: Comment: Dr Bradley - Toileting: Toileting: Contact Guard - Bladder Management: Bladder Pattern: Normal Voiding Method: Toilet, Urinal Bladder Management: Contact Guard - Transfers: Transfers: Contact Guard - ADL's: ADL's: Contact Guard - Pain Management: Other Intervention:: on percocet for pain and tylenol for pain - Patient/Family Teaching: Other Intervention:: safety fall aspiration precaution post cva care on avasys for safety - Goals/Time Frame: Comment: as per multidiciplinary plan of care - Provider: Registered Nurse:: Nicolette Su Physical Therapy - Bed Mobility Bed Mobility: Supervision, Verbal Cues - Transfers Wheelchair to Mat: Supervision, Verbal Cues Sit to Stand: Supervision, Verbal Cues - Ambulation Level of Assistance: Supervision, Verbal Cues Distance (ft.): 200 Assistive Devices: N/A Orthoses: n/a Comment: 200 feet x 4 trials on level surface with VCs for reciprocal arm swing. -occasional mis-step during gait with cues for attention to task. -VCs for energy conservation - Stair Negotiation Stairs: Level of Assistance: Supervision, Verbal Cues Stairs: Assistive Devices: Right Handrail Comment: 1 flight 8 inch steps with R rail on ascent and descent. -step to pattern on ascent leading with LLE with stable gait. -step to pattern on descent with leading with LLE but patient inquires to manual writer first which leg to utilize due to impaired recall - Standing Balance Static Stand: Supervision - Pain Pain (assessed during therapy session): 0 Comment: patient denies pain at start of session that is acute or new onset. - has some reports of discomfort in lower back (4-5/10) which is improved with use of heat pack and distraction techniques - Insight/Carryover Insight/Carryover: Fair - Patient/Family Education Comment: safety, therapy, schedule goals, POC, mobility, use of call latif, fall reduction, requesting for assistance, use of self-releasing seatbelt - Assessment/Plan Assessment: Mr. Fuchs continues to make good progress in therapies. Patient is impaired by reports of low back pain and benefits from heat pack and distraction. Patient requires cues for safety and attention. Patient continues to have elevated BP which impacted therapy participation yesterday. PT recommends continued skilled PT to maximize safety and independence with all mobility s/p CVA. PT recommends home discharge with home services. - Goals Timeframe: 7 days Goals: mod I with bed/mat mobility. mod I with transfers. mod I x 1000 feet without device. 1 flight of steps with single rail and mod I - Provider Physical Therapist:: Jodee Angel License Number:: [id number] Occupational Therapy - Arousal/Attention/Orientation Level of Consciousness: Awake, Alert Patient Orientation: Person, Place, Time, Appropriate to Age, Appropriate to Sit uation Assessment Comment: -anxiety. -sad about current functional status - ADL/IADL Self Feeding: Independent, Set-up Help Grooming: Independent, Set-up Help Bathing-Upper Ext: Verbal Cues, Set-up Help, Minimal Assistance Bathing-Lower Ext: Verbal Cues, Set-up Help, Minimal Assistance Dressing-Upper Ext: Supervision, Verbal Cues, Set-up Help Dressing-Lower Ext: Verbal Cues, Set-up Help, Contact Guard Comment: homemaking: TBA - Sitting Balance Static Sitting: Independent without upper extremity support Dynamic Sitting: Reaches across midline, Reaches out of base of support, Reaches within base of support, Requires supervision Comment: seated unsupported - Transfers Wheelchair to Bed Transfers: Verbal Cues, Set-up Help, Contact Guard Toilet Transfers: Verbal Cues, Set-up Help, Contact Guard Comment: shower transfers: CG and verbal cues for pacing - Wheelchair Management Level of Assistance: Verbal Cues, Set-up Help, Minimal Assistance Distance (ft.): 50 - Upper Extremity Status Right Upper Extremity Comment: RUE: AROM WNLS 5/5 Left Upper Extremity Comment: PROM is WFLS,. L shoulder flex/abd: 3/5,. L elbow flex/ex: 3-/5 to 3. L foreram supination/pronation 3-/5 to 35. L wrist flex/ext: 3-/5. L tenodesis, Trace in hand/digits. Min edema - Pain Pain (assessed during therapy session): 5 Alleviating Techniques: Distraction, Inactivity Comment: chronic low back pain - Insight/Carryover Insight/Carryover: Fair - Patient/Family Education Comment: *communicate with pt in Nauruan-adl, transfer/mobility training using adaptive/compensatory strategies. -LUE management/positioning, ROM/strengthening. -w/c management/propulsion. -safety awareness, use of call latif, fall prevention--seatblet alarm. -activity tolerance/endurance tasks. - *further training needed to increase carryover - Assessment/Plan Assessment: Pt is a 57 year old Nauruan speaking R handed male with dx: acute CVA, L hemiparesis. Precautions: falls(w/c alarm, AVASYS), L laptray prn , aspiration precautions(thins/finely chopped), + impulsivity. Pt with the following limitations: -+impulsivity. -impaired standing balance/tolerance. - impaired strength/motor control/AROM in LUE t/o more distally. -+chronic back pain. -impaired attention. -impaired sensation L digit/thumb. -impaired safety awareness. -impaired knowledge of adaptive/compensatory strategies. - +edema in LUE t/o. -impaired endurance/activity tolerance. -imapired cognition--which impact self care, transfers/mobility, Iadls. Pt will continue to benefit skilled Occupational Therapy to address functional impairments as needed to complete self care, transfers/Iadls with greater safety/I for tra nsition home with services. Pt may likely need 3 in one commode, shower chair vs bench pending progress. Pt may benefit from podiatry consult for foot care; RN made aware this date. Pt may benefit from sychology consult for mood and to learn coping strategies dealing with current health issues. Pt continues to demonstrate increase AROM in LUE throughout along with decreased overall edema, increase overall function in self care, transfers/mobility. Pt continues to be impulsive & needs re-direction to pace self. *Goal: Intermittent Supervision for self care, transfers/mobility and light homemaking skills with assistive device, compensatory strategies. - Goals Timeframe: 8 days Comment: *FEEDING: Mod I. *GROOMING: Supervision standing at sink. *UPPER BODY DRESSNG: I/setup--hemitechniques. *LOWER BODY DRESSING: Supervision/setup. *TOILETING: Supervision/verbal cues. *TRANSFERS:<->bed, commode, chair and other surfaces with CS/Supervision. *LUE STRENGTH: Increase strength 3/5 to 3+/5 throughout LUE for improve adl function. *LIGHT HOMEMAKING SKILLS: min assist and verbal cues. *GATHER/TRANSPORT ITEMS from closet, drawer with min assist and verbal cuse in prep for self care. *W/C MANAGEMENT/PROPULSION: 150 feet with Mod I, manage B brakes with S for safety - Provider Occupational Therapist:: Blank Lama License Number: [id number] Speech Therapy - Consult Information Patient on Program: Yes Medical Diagnosis: CVA Treatment Diagnosis: -mild dysarthria. -mild-moderate cognitive deficits. - mild dysphagia - Assessment Problem Solving Impairment: Moderate Memory Impairment: Moderate Speech/Articulation Impairment: Mild Dysphagia/Swallowing Impairment: Mild - Plan Assessment: Gary Fuchs presents with 1.) mild dysarthria characterized by L facial weakness resulting in impaired articulatory precision, though pt's speech is generally intelligible; 2.) mild-moderate cognitive deficits characterized by impaired short-term recall, thought organization, problem solving, reasoning, and insight; and 3.) mild oral dysphagia characterized by mildly prolonged mastication and A-P transit time with regular solids; pt's diet was advanced to mechanical soft bite-sized solids and thin liquids via small, single sips; maintain aspiration precautions; intermittent supervision with meals to enforce pt compliance with safe swallow strategies, as he is impulsive at times. Pt would benefit from continued short-term dysphagia tx for improved oral motor strength/ROM, diet tolerance, and compensatory strategy training, as well as skilled speech tx for improved cognition and articulation. Plan: Continue Dysphagia Therapy, Continue Speech/Language Therapy Frequency: 3-5 times per week Duration: 1 week Goals/Timeframe: Please see progress note dated 04/14/18 for updated goals/POC Recommendations: -Continue speech and dysphagia tx 3-5x/week. -Bite-sized solids/thin liquids - Provider Therapist: Caryn Duque License Number: [id number] Recreational Therapy - Participation Participation: Monitors His/Her Own Leisure Time - Attendance Attendance: 3-5 times per week - Activities Leisure Activities: Socializing - Socialization Level of Socialization: Initiates/interacts freely with care givers and peer - Assessment Assessment/Plan: Pt receives daily room visits for social support and encouragement to participate in recreation therapy sessions. Pt has declined to participate in sessions 2' decrease interest or fatigue. Pt encouraged and educated on benefits to participate in sessions as pt reports he is frustrated about L UE weakness. Will continue to encourage throughout stay on unit. Problems Currently Limiting Participation: L side weakness, decrease leisure awareness level, impaired safety insight, pain Goals and Time Frame: Pt will be encouraged to participate in 1:1 and group recreation therapy session and tolerate session for at least 20 minutes daily to improve on leisure awareness level, safety insight, and direction following by date of discharge. - Provider Therapist: Karely Boucher Nutrition - Current Diet Current Diet/Supplement/Feedings: Moderate consistent CHO heart healthy advanced bite size thin liquids - Appetite Percent Meal Consumed: 50-74% - Assessment/Goals/Time Frame Assessments/Goals/Time Frame: Pt at high nutritional risk. goals: 1. Pt to consume 75-100% of meals. 2. Blood glucoses to be between 70-180 mg/dl. Follow-up due on 03/22/2018 - Provider Provider: Hannah Aguirre Case Management - Psychosocial Assessment Support Systems: Pricilla Fuchs (sister) - [phone] Psychological Interventions/Needs: Patient is awake and alert. Unable to determine patient's accuracy about where his siblings live as both of the numbers listed for them have been going straight to voice mail. CM to f/u. Discharge Concerns: Patient lives alone in an apartment building with an elevator. Patient/Family Meeting: CM met with patient and rehab team. Intervention/Goal/Outcome: 1. Goal: Supervision 2. Plan: home with [facility] 3. DME needs 4. f/u appts 5. continue to reach out to family to discuss plans for d/c 6. continued emotional support - Discharge Plan Discharge Plan: Home with services Home Services: [facility]? - Provider Provider: Shanelle Chisholm License Number: [id number] Rehabilitation Plan - Treatment Plan Treatment Plan: Physical Therapy, Occupational Therapy, Speech, Dietary, Patient/Family Education - Discharge Plan Estimated Date of Discharge: 04/24/18 Discharge to: Home
--- NOTE | 2018-04-15 13:48 | CP.PCM.PN ---
Subjective - Date & Time of Evaluation Date of Evaluation: 04/15/18 Time of Evaluation: 13:47 - Subjective Subjective: Patient seen in the room cut his scalp shaving denies sob/cp very happy with progress and care to this point continue with current care. plan is to d/c home Objective - Vital Signs/Intake and Output Vital Signs (last 24 hours): Temp Pulse Resp BP Pulse Ox 97.2 F L 76 18 132/76 100 04/15/18 09:00 04/15/18 09:05 04/15/18 09:00 04/15/18 09:05 04/15/18 07:33 - Medications Medications: Current Medications Acetaminophen (Tylenol 325mg Tab) 650 mg PO Q4 PRN PRN Reason: Fever >100.4 F Last Admin: 04/10/18 11:12 Dose: 650 mg Acetaminophen (Tylenol 325mg Tab) 650 mg PO Q4 PRN PRN Reason: Pain, moderate (4-7) Amlodipine Besylate (Norvasc) 10 mg PO DAILY [facility] Last Admin: 04/15/18 09:05 Dose: 10 mg Aspirin (Aspirin Chewable) 81 mg PO DAILY [facility] Last Admin: 04/15/18 08:59 Dose: 81 mg Atorvastatin Calcium (Lipitor) 40 mg PO DAILY [facility] Last Admin: 04/15/18 09:05 Dose: 40 mg Clonidine HCl (Catapres) 0.2 mg PO BID PRN PRN Reason: Systolic Blood Pressure Last Admin: 04/14/18 23:14 Dose: 0.2 mg Clopidogrel Bisulfate (Plavix) 75 mg PO DAILY [facility] Last Admin: 04/15/18 08:57 Dose: 75 mg Docusate Sodium (Colace) 100 mg PO BID [facility] Last Admin: 04/15/18 08:58 Dose: 100 mg Enoxaparin Sodium (Lovenox) 40 mg SC DAILY [facility]; Protocol Last Admin: 04/15/18 08:57 Dose: 40 mg Fluoxetine HCl (Prozac) 20 mg PO DAILY [facility] Last Admin: 04/15/18 08:58 Dose: 20 mg Insulin Human Lispro (Humalog) 0 units SC ACBD [facility]; Protocol Last Admin: 04/15/18 06:33 Dose: Not Given Losartan Potassium (Cozaar) 50 mg PO DAILY [facility] Last Admin: 04/15/18 09:04 Dose: 50 mg Magnesium Hydroxide (Milk Of Magnesia) 30 ml PO DAILY PRN PRN Reason: Constipation Last Admin: 04/14/18 19:45 Dose: 30 ml Metformin HCl (Glucophage) 500 mg PO BIDWM [facility] Last Admin: 04/15/18 08:57 Dose: 500 mg Metoprolol Tartrate (Lopressor) 50 mg PO Q12 [facility] Last Admin: 04/15/18 09:04 Dose: 50 mg Multivitamins/Minerals (Therapeutic-M Tab) 1 tab PO DAILY [facility] Last Admin: 04/15/18 09:06 Dose: 1 tab Oxycodone/Acetaminophen (Percocet 5/325 Mg Tab) 1 tab PO Q6 PRN PRN Reason: Pain, severe (8-10) Stop: 04/16/18 08:03 Last Admin: 04/15/18 08:55 Dose: 1 tab Pantoprazole Sodium (Protonix Ec Tab) 40 mg PO DAILY [facility] Last Admin: 04/15/18 08:57 Dose: 40 mg Quetiapine Fumarate (Seroquel) 100 mg PO HS [facility] Last Admin: 04/14/18 21:36 Dose: 100 mg - Labs Labs: 04/13/18 05:30 04/13/18 05:30 PT 12.9 Seconds (9.8-13.1) 04/10/18 06:00 INR 1.1 04/10/18 06:00 APTT 36.7 Seconds (25.6-37.1) 04/10/18 06:00
[2018-04-16 06:30] LABS: HEMOGLOBIN 13.6 g/dL (12.0-18.0); MEAN CELL VOLUME 92.6 fl (80.0-94.0); MEAN CORPUSCULAR HEMOGLOBIN 31.6 pg (27.0-31.0); MEAN CORPUSCULAR HGB CONC 34.1 g/dL (33.0-37.0); RBC 4.3 Mil/uL (4.40-5.90); RED CELL DISTRIBUTION WIDTH 13.8 % (11.5-14.5); WHITE BLOOD COUNT 7.8 K/uL (4.8-10.8)
[2018-04-16] MEDS: Insulin Lispro (humaLOG) 100 Units/ml Inj SC SCH ×2 (06:30→16:11)
[2018-04-16 07:24] LABS: BLOOD UREA NITROGEN 22 mg/dl (9-20); CALCIUM 9.5 mg/dL (8.4-10.2); GFR NON-AFRICAN AMERICAN > 60
[2018-04-16] MEDS: Enoxaparin 40 mg Syringe SC SCH (08:21)
[2018-04-16] MEDS: Pantoprazole 40 mg EC Tab PO SCH (08:22)
[2018-04-16] MEDS: Multivitamin With Minerals Tab PO SCH (08:22)
--- NOTE | 2018-04-16 14:26 | CP.PCM.PN ---
Subjective - Date & Time of Evaluation Date of Evaluation: 04/16/18 Time of Evaluation: 14:26 - Subjective Subjective: doing well no complaints hd stable nad Objective - Vital Signs/Intake and Output Vital Signs (last 24 hours): Temp Pulse Resp BP Pulse Ox 97.5 F L 68 18 140/92 H 98 04/16/18 08:02 04/16/18 09:29 04/16/18 09:29 04/16/18 09:29 04/16/18 08:02 Intake and Output: Vitals Reviewed GEN: WDWN, alert, cooperative HEENT: NCAT, PERRL, EOMI HEART: RRR, +S1S2, NO MRG LUNG: CTAB, NO WRR ABD: soft, NT, ND, No HSM, No masses EXT: normal pedal pulses NEURO: awake, alert SKIN: warm, dry PSYCH: normal mood, normal affect - Medications Medications: Current Medications Acetaminophen (Tylenol 325mg Tab) 650 mg PO Q4 PRN PRN Reason: Fever >100.4 F Last Admin: 04/10/18 11:12 Dose: 650 mg Acetaminophen (Tylenol 325mg Tab) 650 mg PO Q4 PRN PRN Reason: Pain, moderate (4-7) Last Admin: 04/16/18 13:56 Dose: 650 mg Amlodipine Besylate (Norvasc) 10 mg PO DAILY [facility] Last Admin: 04/16/18 08:21 Dose: 10 mg Aspirin (Aspirin Chewable) 81 mg PO DAILY [facility] Last Admin: 04/16/18 08:19 Dose: 81 mg Atorvastatin Calcium (Lipitor) 40 mg PO DAILY [facility] Last Admin: 04/16/18 08:20 Dose: 40 mg Clonidine HCl (Catapres) 0.2 mg PO BID PRN PRN Reason: Systolic Blood Pressure Last Admin: 04/14/18 23:14 Dose: 0.2 mg Clopidogrel Bisulfate (Plavix) 75 mg PO DAILY [facility] Last Admin: 04/16/18 08:22 Dose: 75 mg Docusate Sodium (Colace) 100 mg PO BID [facility] Last Admin: 04/16/18 08:19 Dose: 100 mg Enoxaparin Sodium (Lovenox) 40 mg SC DAILY [facility]; Protocol Last Admin: 04/16/18 08:21 Dose: 40 mg Fluoxetine HCl (Prozac) 20 mg PO DAILY [facility] Last Admin: 04/16/18 08:22 Dose: 20 mg Insulin Human Lispro (Humalog) 0 units SC ACBD [facility]; Protocol Last Admin: 04/16/18 06:30 Dose: Not Given Losartan Potassium (Cozaar) 50 mg PO DAILY [facility] Last Admin: 04/16/18 08:19 Dose: 50 mg Magnesium Hydroxide (Milk Of Magnesia) 30 ml PO DAILY PRN PRN Reason: Constipation Last Admin: 04/14/18 19:45 Dose: 30 ml Metformin HCl (Glucophage) 500 mg PO BIDWM [facility] Last Admin: 04/16/18 08:20 Dose: 500 mg Metoprolol Tartrate (Lopressor) 50 mg PO Q12 [facility] Last Admin: 04/16/18 08:20 Dose: 50 mg Multivitamins/Minerals (Therapeutic-M Tab) 1 tab PO DAILY [facility] Last Admin: 04/16/18 08:22 Dose: 1 tab Pantoprazole Sodium (Protonix Ec Tab) 40 mg PO DAILY [facility] Last Admin: 04/16/18 08:22 Dose: 40 mg Quetiapine Fumarate (Seroquel) 100 mg PO HS [facility] Last Admin: 04/15/18 21:06 Dose: 100 mg - Labs Labs: 04/16/18 05:15 04/16/18 05:15 PT 12.9 Seconds (9.8-13.1) 04/10/18 06:00 INR 1.1 04/10/18 06:00 APTT 36.7 Seconds (25.6-37.1) 04/10/18 06:00 Assessment and Plan - Assessment and Plan (Free Text) Plan: 57 years old male transferred from the [facility]. He has hx of DM, HTN and was admitted at the [facility] on 04/05/18 with diagnosis of acute CVA and left side weakness. #. Acute right Basal ganglia CVA - Consult Dr Bradley the [employer] - ASA - Plavix For 20 days, then continue with ASA as monotherapy indefinitely - Atorvastatin - OT/PT - Follow up with Neurology Dr Borja after discharge #. HTN uncontrolled - Metoprolol/ Losartan/ Norvasc - Titrate for BP control #. DM II - Lispro sliding scale according to Accucheck ACHS - Meformin #. HLD. - Lipid panel showed elevated cholesterol and LDL - Atorvastatin #. Depression - Prozac/ Seroquel #. Stress ulcer Prophylaxis with Pantoprazole #. DVT Prophylaxis with Lovenox #. Code Status: Full
--- NOTE | 2018-04-16 19:23 | CP.PCM.PN ---
Subjective - Date & Time of Evaluation Date of Evaluation: 04/16/18 Time of Evaluation: 19:22 - Subjective Subjective: Patient seen in the room denies sob/cp denies depression or sadness animated and happy with therapies continue current care Objective - Vital Signs/Intake and Output Vital Signs (last 24 hours): Temp Pulse Resp BP Pulse Ox 97.5 F L 68 18 140/92 H 98 04/16/18 08:02 04/16/18 14:00 04/16/18 14:00 04/16/18 14:00 04/16/18 08:02 - Medications Medications: Current Medications Acetaminophen (Tylenol 325mg Tab) 650 mg PO Q4 PRN PRN Reason: Fever >100.4 F Last Admin: 04/10/18 11:12 Dose: 650 mg Acetaminophen (Tylenol 325mg Tab) 650 mg PO Q4 PRN PRN Reason: Pain, moderate (4-7) Last Admin: 04/16/18 13:56 Dose: 650 mg Amlodipine Besylate (Norvasc) 10 mg PO DAILY [facility] Last Admin: 04/16/18 08:21 Dose: 10 mg Aspirin (Aspirin Chewable) 81 mg PO DAILY [facility] Last Admin: 04/16/18 08:19 Dose: 81 mg Atorvastatin Calcium (Lipitor) 40 mg PO DAILY [facility] Last Admin: 04/16/18 08:20 Dose: 40 mg Clonidine HCl (Catapres) 0.2 mg PO BID PRN PRN Reason: Systolic Blood Pressure Last Admin: 04/14/18 23:14 Dose: 0.2 mg Clopidogrel Bisulfate (Plavix) 75 mg PO DAILY [facility] Last Admin: 04/16/18 08:22 Dose: 75 mg Docusate Sodium (Colace) 100 mg PO BID [facility] Last Admin: 04/16/18 16:09 Dose: 100 mg Enoxaparin Sodium (Lovenox) 40 mg SC DAILY [facility]; Protocol Last Admin: 04/16/18 08:21 Dose: 40 mg Fluoxetine HCl (Prozac) 20 mg PO DAILY [facility] Last Admin: 04/16/18 08:22 Dose: 20 mg Insulin Human Lispro (Humalog) 0 units SC BD [facility]; Protocol Last Admin: 04/16/18 16:11 Dose: Not Given Losartan Potassium (Cozaar) 50 mg PO DAILY [facility] Last Admin: 04/16/18 08:19 Dose: 50 mg Magnesium Hydroxide (Milk Of Magnesia) 30 ml PO DAILY PRN PRN Reason: Constipation Last Admin: 04/14/18 19:45 Dose: 30 ml Metformin HCl (Glucophage) 500 mg PO BIDWM [facility] Last Admin: 04/16/18 16:10 Dose: 500 mg Metoprolol Tartrate (Lopressor) 50 mg PO Q12 [facility] Last Admin: 04/16/18 08:20 Dose: 50 mg Multivitamins/Minerals (Therapeutic-M Tab) 1 tab PO DAILY [facility] Last Admin: 04/16/18 08:22 Dose: 1 tab Pantoprazole Sodium (Protonix Ec Tab) 40 mg PO DAILY [facility] Last Admin: 04/16/18 08:22 Dose: 40 mg Quetiapine Fumarate (Seroquel) 100 mg PO HS [facility] Last Admin: 04/15/18 21:06 Dose: 100 mg - Labs Labs: 04/16/18 05:15 04/16/18 05:15 PT 12.9 Seconds (9.8-13.1) 04/10/18 06:00 INR 1.1 04/10/18 06:00 APTT 36.7 Seconds (25.6-37.1) 04/10/18 06:00
[2018-04-17] MEDS: Insulin Lispro (humaLOG) 100 Units/ml Inj SC SCH ×2 (06:56→16:31)
[2018-04-17] MEDS: Enoxaparin 40 mg Syringe SC SCH (08:22)
[2018-04-17] MEDS: Pantoprazole 40 mg EC Tab PO SCH (08:23)
[2018-04-17] MEDS: Multivitamin With Minerals Tab PO SCH (08:24)
[2018-04-18] MEDS: Insulin Lispro (humaLOG) 100 Units/ml Inj SC SCH ×2 (07:14→17:04)
[2018-04-18] MEDS: Enoxaparin 40 mg Syringe SC SCH (08:42)
[2018-04-18] MEDS: Multivitamin With Minerals Tab PO SCH (08:43)
[2018-04-18] MEDS: Pantoprazole 40 mg EC Tab PO SCH (08:43)
--- NOTE | 2018-04-18 11:30 | CP.PCM.PN ---
Subjective - Date & Time of Evaluation Date of Evaluation: 04/18/18 Time of Evaluation: 11:00 - Subjective Subjective: Patient was seen and examined. All chart and clinical data reviewed . Feeling better . Participating with PT Still with some weakness to LUE Hemodynamically stable, afebrile No acute issues overnight Objective - Vital Signs/Intake and Output Vital Signs (last 24 hours): Temp Pulse Resp BP Pulse Ox 97.6 F 74 21 126/70 98 04/18/18 10:36 04/18/18 10:36 04/18/18 10:36 04/18/18 10:36 04/18/18 10:36 - Medications Medications: Current Medications Acetaminophen (Tylenol 325mg Tab) 650 mg PO Q4 PRN PRN Reason: Fever >100.4 F Last Admin: 04/10/18 11:12 Dose: 650 mg Acetaminophen (Tylenol 325mg Tab) 650 mg PO Q4 PRN PRN Reason: Pain, moderate (4-7) Last Admin: 04/17/18 15:32 Dose: 650 mg Amlodipine Besylate (Norvasc) 10 mg PO DAILY [facility] Last Admin: 04/18/18 08:42 Dose: 10 mg Aspirin (Aspirin Chewable) 81 mg PO DAILY [facility] Last Admin: 04/18/18 08:44 Dose: 81 mg Atorvastatin Calcium (Lipitor) 40 mg PO DAILY [facility] Last Admin: 04/18/18 08:45 Dose: 40 mg Clonidine HCl (Catapres) 0.2 mg PO BID PRN PRN Reason: Systolic Blood Pressure Last Admin: 04/16/18 22:00 Dose: 0.2 mg Clopidogrel Bisulfate (Plavix) 75 mg PO DAILY [facility] Last Admin: 04/18/18 08:43 Dose: 75 mg Docusate Sodium (Colace) 100 mg PO BID [facility] Last Admin: 04/18/18 08:43 Dose: 100 mg Enoxaparin Sodium (Lovenox) 40 mg SC DAILY [facility]; Protocol Last Admin: 04/18/18 08:42 Dose: 40 mg Fluoxetine HCl (Prozac) 20 mg PO DAILY [facility] Last Admin: 04/18/18 08:43 Dose: 20 mg Insulin Human Lispro (Humalog) 0 [facility]; Protocol Last Admin: 04/18/18 07:14 Dose: Not Given Losartan Potassium (Cozaar) 50 mg PO DAILY [facility] Last Admin: 04/18/18 08:44 Dose: 50 mg Magnesium Hydroxide (Milk Of Magnesia) 30 ml PO DAILY PRN PRN Reason: Constipation Last Admin: 04/14/18 19:45 Dose: 30 ml Metformin HCl (Glucophage) 500 mg PO BIDWM [facility] Last Admin: 04/18/18 08:44 Dose: 500 mg Metoprolol Tartrate (Lopressor) 50 mg PO Q12 [facility] Last Admin: 04/18/18 08:45 Dose: 50 mg Multivitamins/Minerals (Therapeutic-M Tab) 1 tab PO DAILY [facility] Last Admin: 04/18/18 08:43 Dose: 1 tab Pantoprazole Sodium (Protonix Ec Tab) 40 mg PO DAILY [facility] Last Admin: 04/18/18 08:43 Dose: 40 mg Quetiapine Fumarate (Seroquel) 100 mg PO HS [facility] Last Admin: 04/17/18 21:27 Dose: 100 mg - Labs Labs: 04/16/18 05:15 04/16/18 05:15 PT 12.9 Seconds (9.8-13.1) 04/10/18 06:00 INR 1.1 04/10/18 06:00 APTT 36.7 Seconds (25.6-37.1) 04/10/18 06:00 - Constitutional Appears: Non-toxic, No Acute Distress - Head Exam Head Exam: ATRAUMATIC, NORMAL INSPECTION, NORMOCEPHALIC - Eye Exam Eye Exam: EOMI, Normal appearance, PERRL Pupil Exam: NORMAL ACCOMODATION - ENT Exam ENT Exam: Mucous Membranes Moist, Normal Exam - Neck Exam Neck Exam: Full ROM, Normal Inspection - Respiratory Exam Respiratory Exam: Clear to Ausculation Bilateral, NORMAL BREATHING PATTERN. absent: Rales, Rhonchi, Wheezes - Cardiovascular Exam Cardiovascular Exam: REGULAR RHYTHM, RRR, +S1, +S2. absent: JVD - GI/Abdominal Exam GI & Abdominal Exam: Soft, Normal Bowel Sounds. absent: Distended, Guarding, Tenderness, Rebound - Rectal Exam Rectal Exam: Deferred - Extremities Exam Extremities Exam: Full ROM, Normal Capillary Refill, Normal Inspection - Back Exam Back Exam: NORMAL INSPECTION - Neurological Exam Neurological Exam: Alert, Awake, Oriented x3 Additional comments: left facial droop - Psychiatric Exam Psychiatric exam: Normal Affect - Skin Skin Exam: Dry, Intact, Normal Color, Warm Assessment and Plan - Assessment and Plan (Free Text) Assessment: 57 years old male transferred from the [facility] for [facility]. He has hx of DM, HTN and was admitted at the [facility] on 04/05/18 with diagnosis of acute CVA and left side weakness. At present he is doing well, participating with PT and improving. 1. Acute right Basal ganglia CVA Participating with PT and improving on ASA and Plavix For 20 days, then continue with ASA as monotherapy indefinitely Continue Atorvastatin Follow up with Neurology Dr Borja after discharge 2. HTN better controlled continue Metoprolol/ Losartan/ Norvasc 3. DM II controlled Lispro sliding scale according to Accucheck ACHS on Meformin 4. HLD on Atorvastatin 5. Depression on Prozac/ Seroquel 6.DVT Prophylaxis Lovenox
--- NOTE | 2018-04-18 18:00 | CP.PCM.PN ---
Subjective - Date & Time of Evaluation Date of Evaluation: 04/18/18 Time of Evaluation: 17:59 - Subjective Subjective: Patient seen in the room doing ok improved left hand strength in good spirits denies pain continue current care Objective - Vital Signs/Intake and Output Vital Signs (last 24 hours): Temp Pulse Resp BP Pulse Ox 97.6 F 74 21 126/70 98 04/18/18 10:36 04/18/18 10:36 04/18/18 10:36 04/18/18 10:36 04/18/18 10:36 - Medications Medications: Current Medications Acetaminophen (Tylenol 325mg Tab) 650 mg PO Q4 PRN PRN Reason: Fever >100.4 F Last Admin: 04/10/18 11:12 Dose: 650 mg Acetaminophen (Tylenol 325mg Tab) 650 mg PO Q4 PRN PRN Reason: Pain, moderate (4-7) Last Admin: 04/17/18 15:32 Dose: 650 mg Amlodipine Besylate (Norvasc) 10 mg PO DAILY [facility] Last Admin: 04/18/18 08:42 Dose: 10 mg Aspirin (Aspirin Chewable) 81 mg PO DAILY [facility] Last Admin: 04/18/18 08:44 Dose: 81 mg Atorvastatin Calcium (Lipitor) 40 mg PO DAILY [facility] Last Admin: 04/18/18 08:45 Dose: 40 mg Clonidine HCl (Catapres) 0.2 mg PO BID PRN PRN Reason: Systolic Blood Pressure Last Admin: 04/16/18 22:00 Dose: 0.2 mg Clopidogrel Bisulfate (Plavix) 75 mg PO DAILY [facility] Last Admin: 04/18/18 08:43 Dose: 75 mg Docusate Sodium (Colace) 100 mg PO BID [facility] Last Admin: 04/18/18 17:04 Dose: 100 mg Enoxaparin Sodium (Lovenox) 40 mg SC DAILY [facility]; Protocol Last Admin: 04/18/18 08:42 Dose: 40 mg Fluoxetine HCl (Prozac) 20 mg PO DAILY [facility] Last Admin: 04/18/18 08:43 Dose: 20 mg Insulin Human Lispro (Humalog) 0 units SC ACBD [facility]; Protocol Last Admin: 04/18/18 17:04 Dose: Not Given Losartan Potassium (Cozaar) 50 mg PO DAILY [facility] Last Admin: 04/18/18 08:44 Dose: 50 mg Magnesium Hydroxide (Milk Of Magnesia) 30 ml PO DAILY PRN PRN Reason: Constipation Last Admin: 04/14/18 19:45 Dose: 30 ml Metformin HCl (Glucophage) 500 mg PO BIDWM [facility] Last Admin: 04/18/18 17:05 Dose: 500 mg Metoprolol Tartrate (Lopressor) 50 mg PO Q12 [facility] Last Admin: 04/18/18 08:45 Dose: 50 mg Multivitamins/Minerals (Therapeutic-M Tab) 1 tab PO DAILY [facility] Last Admin: 04/18/18 08:43 Dose: 1 tab Pantoprazole Sodium (Protonix Ec Tab) 40 mg PO DAILY [facility] Last Admin: 04/18/18 08:43 Dose: 40 mg Quetiapine Fumarate (Seroquel) 100 mg PO HS [facility] Last Admin: 04/17/18 21:27 Dose: 100 mg - Labs Labs: 04/16/18 05:15 04/16/18 05:15 PT 12.9 Seconds (9.8-13.1) 04/10/18 06:00 INR 1.1 04/10/18 06:00 APTT 36.7 Seconds (25.6-37.1) 04/10/18 06:00
[2018-04-19 06:21] LABS: HEMOGLOBIN 13.1 g/dL (12.0-18.0); MEAN CELL VOLUME 92.5 fl (80.0-94.0); MEAN CORPUSCULAR HEMOGLOBIN 31.7 pg (27.0-31.0); MEAN CORPUSCULAR HGB CONC 34.2 g/dL (33.0-37.0); RBC 4.14 Mil/uL (4.40-5.90); WHITE BLOOD COUNT 7.8 K/uL (4.8-10.8)
[2018-04-19 06:33] LABS: BLOOD UREA NITROGEN 24 mg/dl (9-20); CALCIUM 9.4 mg/dL (8.4-10.2); GFR NON-AFRICAN AMERICAN > 60
[2018-04-19] MEDS: Insulin Lispro (humaLOG) 100 Units/ml Inj SC SCH ×2 (07:07→16:30)
[2018-04-19] MEDS: Enoxaparin 40 mg Syringe SC SCH (09:46)
[2018-04-19] MEDS: Multivitamin With Minerals Tab PO SCH (09:48)
[2018-04-19] MEDS: Pantoprazole 40 mg EC Tab PO SCH (09:48)
[2018-04-19] MEDS ORDERED: Oxycodone/Acetaminophen 5/325 mg Tab PO PRN (20:58)
[2018-04-19] MEDS: Oxycodone/Acetaminophen 5/325 mg Tab PO PRN (21:15)
[2018-04-20] MEDS: Insulin Lispro (humaLOG) 100 Units/ml Inj SC SCH ×2 (06:48→16:07)
[2018-04-20] MEDS: Multivitamin With Minerals Tab PO SCH (08:19)
[2018-04-20] MEDS: Pantoprazole 40 mg EC Tab PO SCH (08:20)
[2018-04-20] MEDS: Enoxaparin 40 mg Syringe SC SCH (08:32)
[2018-04-20] MEDS: Oxycodone/Acetaminophen 5/325 mg Tab PO PRN (18:59)
[2018-04-21] MEDS: Insulin Lispro (humaLOG) 100 Units/ml Inj SC SCH ×2 (06:54→16:27)
[2018-04-21] MEDS: Multivitamin With Minerals Tab PO SCH (08:25)
[2018-04-21] MEDS: Enoxaparin 40 mg Syringe SC SCH (08:25)
[2018-04-21] MEDS: Pantoprazole 40 mg EC Tab PO SCH (08:25)
[2018-04-21] MEDS: Oxycodone/Acetaminophen 5/325 mg Tab PO PRN ×2 (09:55→21:22)
--- NOTE | 2018-04-21 14:51 | CP.PCM.PN ---
Subjective - Date & Time of Evaluation Date of Evaluation: 04/21/18 Time of Evaluation: 14:51 - Subjective Subjective: pt doing well no complaints hd stable nad Objective - Vital Signs/Intake and Output Vital Signs (last 24 hours): Temp Pulse Resp BP Pulse Ox 98.3 F 83 22 109/78 98 04/21/18 07:54 04/21/18 08:25 04/21/18 07:54 04/21/18 08:25 04/21/18 07:54 Vitals Reviewed GEN: WDWN, alert, cooperative HEENT: NCAT, PERRL, EOMI HEART: RRR, +S1S2, NO MRG LUNG: CTAB, NO WRR ABD: soft, NT, ND, No HSM, No masses EXT: normal pedal pulses NEURO: awake, alert SKIN: warm, dry PSYCH: normal mood, normal affect - Medications Medications: Current Medications Acetaminophen (Tylenol 325mg Tab) 650 mg PO Q4 PRN PRN Reason: Fever >100.4 F Last Admin: 04/10/18 11:12 Dose: 650 mg Acetaminophen (Tylenol 325mg Tab) 650 mg PO Q4 PRN PRN Reason: Pain, Mild (1-3) Amlodipine Besylate (Norvasc) 10 mg PO DAILY [facility] Last Admin: 04/21/18 08:25 Dose: 10 mg Aspirin (Aspirin Chewable) 81 mg PO DAILY [facility] Last Admin: 04/21/18 08:24 Dose: 81 mg Atorvastatin Calcium (Lipitor) 40 mg PO DAILY [facility] Last Admin: 04/21/18 08:25 Dose: 40 mg Clonidine HCl (Catapres) 0.2 mg PO BID PRN PRN Reason: Systolic Blood Pressure Last Admin: 04/16/18 22:00 Dose: 0.2 mg Clopidogrel Bisulfate (Plavix) 75 mg PO DAILY [facility] Last Admin: 04/21/18 08:25 Dose: 75 mg Docusate Sodium (Colace) 100 mg PO BID [facility] Last Admin: 04/21/18 08:24 Dose: 100 mg Enoxaparin Sodium (Lovenox) 40 mg SC DAILY [facility]; Protocol Last Admin: 04/21/18 08:25 Dose: 40 mg Fluoxetine HCl (Prozac) 20 mg PO DAILY [facility] Last Admin: 04/21/18 08:25 Dose: 20 mg Insulin Human Lispro (Humalog) 0 units SC [facility]; Protocol Last Admin: 04/21/18 06:54 Dose: Not Given Losartan Potassium (Cozaar) 50 mg PO DAILY [facility] Last Admin: 04/21/18 08:24 Dose: 50 mg Magnesium Hydroxide (Milk Of Magnesia) 30 ml PO DAILY PRN PRN Reason: Constipation Last Admin: 04/14/18 19:45 Dose: 30 ml Metformin HCl (Glucophage) 500 mg PO BIDWM [facility] Last Admin: 04/21/18 08:24 Dose: 500 mg Metoprolol Tartrate (Lopressor) 50 mg PO Q12 [facility] Last Admin: 04/21/18 08:25 Dose: 50 mg Multivitamins/Minerals (Therapeutic-M Tab) 1 tab PO DAILY [facility] Last Admin: 04/21/18 08:25 Dose: 1 tab Oxycodone/Acetaminophen (Percocet 5/325 Mg Tab) 1 tab PO Q6 PRN PRN Reason: pain (scale 4-10) Stop: 04/22/18 20:59 Last Admin: 04/21/18 09:55 Dose: 1 tab Pantoprazole Sodium (Protonix Ec Tab) 40 mg PO DAILY [facility] Last Admin: 04/21/18 08:25 Dose: 40 mg Quetiapine Fumarate (Seroquel) 100 mg PO HS [facility] Last Admin: 04/20/18 21:19 Dose: 100 mg - Labs Labs: 04/19/18 05:18 04/19/18 05:18 PT 12.9 Seconds (9.8-13.1) 04/10/18 06:00 INR 1.1 04/10/18 06:00 APTT 36.7 Seconds (25.6-37.1) 04/10/18 06:00 Assessment and Plan - Assessment and Plan (Free Text) Plan: 57 years old male transferred from the [facility] for [facility]. He has hx of DM, HTN and was admitted at the [facility] on 04/05/18 with diagnosis of acute CVA and left side weakness. At present he is doing well, participating with PT and improving. 1. Acute right Basal ganglia CVA Participating with PT and improving on ASA and Plavix For 20 days, then continue with ASA as monotherapy indefinitely Continue Atorvastatin Follow up with Neurology Dr Borja after discharge 2. HTN better controlled continue Metoprolol/ Losartan/ Norvasc 3. DM II controlled Lispro sliding scale according to Accucheck ACHS on Meformin 4. HLD on Atorvastatin 5. Depression on Prozac/ Seroquel 6.DVT Prophylaxis Lovenox
--- NOTE | 2018-04-21 17:10 | CP.PCM.PN ---
Subjective - Date & Time of Evaluation Date of Evaluation: 04/21/18 Time of Evaluation: 17:09 - Subjective Subjective: Patient seen in the room doing much better and ambulating now over 200' denies sob/cp no fever improved left hand function as well very motivated in therapies continue current care Objective - Vital Signs/Intake and Output Vital Signs (last 24 hours): Temp Pulse Resp BP Pulse Ox 98.3 F 83 22 109/78 98 04/21/18 07:54 04/21/18 08:25 04/21/18 07:54 04/21/18 08:25 04/21/18 07:54 - Medications Medications: Current Medications Acetaminophen (Tylenol 325mg Tab) 650 mg PO Q4 PRN PRN Reason: Fever >100.4 F Last Admin: 04/10/18 11:12 Dose: 650 mg Acetaminophen (Tylenol 325mg Tab) 650 mg PO Q4 PRN PRN Reason: Pain, Mild (1-3) Amlodipine Besylate (Norvasc) 10 mg PO DAILY [facility] Last Admin: 04/21/18 08:25 Dose: 10 mg Aspirin (Aspirin Chewable) 81 mg PO DAILY [facility] Last Admin: 04/21/18 08:24 Dose: 81 mg Atorvastatin Calcium (Lipitor) 40 mg PO DAILY [facility] Last Admin: 04/21/18 08:25 Dose: 40 mg Clonidine HCl (Catapres) 0.2 mg PO BID PRN PRN Reason: Systolic Blood Pressure Last Admin: 04/16/18 22:00 Dose: 0.2 mg Clopidogrel Bisulfate (Plavix) 75 mg PO DAILY [facility] Last Admin: 04/21/18 08:25 Dose: 75 mg Docusate Sodium (Colace) 100 mg PO BID [facility] Last Admin: 04/21/18 16:45 Dose: 100 mg Enoxaparin Sodium (Lovenox) 40 mg SC DAILY [facility]; Protocol Last Admin: 04/21/18 08:25 Dose: 40 mg Fluoxetine HCl (Prozac) 20 mg PO DAILY [facility] Last Admin: 04/21/18 08:25 Dose: 20 mg Insulin Human Lispro (Humalog) 0 units SC ACBD [facility]; Protocol Last Admin: 04/21/18 16:27 Dose: Not Given Losartan Potassium (Cozaar) 50 mg PO DAILY [facility] Last Admin: 04/21/18 08:24 Dose: 50 mg Magnesium Hydroxide (Milk Of Magnesia) 30 ml PO DAILY PRN PRN Reason: Constipation Last Admin: 04/14/18 19:45 Dose: 30 ml Metformin HCl (Glucophage) 500 mg PO BIDWM [facility] Last Admin: 04/21/18 16:45 Dose: 500 mg Metoprolol Tartrate (Lopressor) 50 mg PO Q12 [facility] Last Admin: 04/21/18 08:25 Dose: 50 mg Multivitamins/Minerals (Therapeutic-M Tab) 1 tab PO DAILY [facility] Last Admin: 04/21/18 08:25 Dose: 1 tab Oxycodone/Acetaminophen (Percocet 5/325 Mg Tab) 1 tab PO Q6 PRN PRN Reason: pain (scale 4-10) Stop: 04/22/18 20:59 Last Admin: 04/21/18 09:55 Dose: 1 tab Pantoprazole Sodium (Protonix Ec Tab) 40 mg PO DAILY [facility] Last Admin: 04/21/18 08:25 Dose: 40 mg Quetiapine Fumarate (Seroquel) 100 mg PO HS [facility] Last Admin: 04/20/18 21:19 Dose: 100 mg - Labs Labs: 04/19/18 05:18 04/19/18 05:18 PT 12.9 Seconds (9.8-13.1) 04/10/18 06:00 INR 1.1 04/10/18 06:00 APTT 36.7 Seconds (25.6-37.1) 04/10/18 06:00
[2018-04-22 06:30] LABS: MEAN CORPUSCULAR HEMOGLOBIN 31.3 pg (27.0-31.0); RBC 4.14 Mil/uL (4.40-5.90); RED CELL DISTRIBUTION WIDTH 13.7 % (11.5-14.5); WHITE BLOOD COUNT 7.8 K/uL (4.8-10.8)
[2018-04-22] MEDS: Insulin Lispro (humaLOG) 100 Units/ml Inj SC SCH ×2 (06:37→16:52)
[2018-04-22 07:19] LABS: BLOOD UREA NITROGEN 16 mg/dl (9-20); CALCIUM 9.3 mg/dL (8.4-10.2); GFR NON-AFRICAN AMERICAN > 60
[2018-04-22] MEDS: Enoxaparin 40 mg Syringe SC SCH (08:24)
[2018-04-22] MEDS: Multivitamin With Minerals Tab PO SCH (08:24)
[2018-04-22] MEDS: Pantoprazole 40 mg EC Tab PO SCH (08:30)
[2018-04-22] MEDS: Oxycodone/Acetaminophen 5/325 mg Tab PO PRN ×2 (10:06→17:17)
--- NOTE | 2018-04-22 13:09 | PCM.PSYTMC ---
Acute Rehab Team Conference - - Vital Signs: Vital Signs (Last 8 Hours): Vital Signs 04/22/18 04/22/18 04/22/18 08:16 08:25 08:26 Temperature 97.3 F L Pulse Rate 77 79 79 Respiratory 22 Rate Blood Pressure 147/99 H 147/99 H O2 Sat by Pulse 97 Oximetry 04/22/18 09:00 Temperature 97.3 F L Pulse Rate 77 Respiratory 22 Rate Blood Pressure 147/99 H O2 Sat by Pulse Oximetry Pain: 0 - Precautions: Precautions: Fall Prevention, Aspiration, Seizure - Medications/Other Issues: Comment: patient with back pain on percocet - Consults: Comment: Dr Bradley - Toileting: Toileting: Supervision - Bladder Management: Bladder Pattern: Normal Voiding Method: Toilet, Urinal Bladder Management: Supervision - Transfers: Transfers: Supervision - ADL's: ADL's: Supervision - Pain Management: Other Intervention:: on percocet for pain - Patient/Family Teaching: Other Intervention:: safety fall aspiration precaution medication teachings with circuit walker - Goals/Time Frame: Comment: as per multidiciplinary plan of care - Provider: Registered Nurse:: Nicolette Su Physical Therapy - Bed Mobility Bed Mobility: Modified Independent, Supervision - Transfers Wheelchair to Mat: Supervision, Verbal Cues Sit to Stand: Supervision, Verbal Cues - Ambulation Level of Assistance: Supervision Distance (ft.): 225 Orthoses: n/a Comment: 225 without device with DS. -slightly increased lateral sway with reduced LUE reciprocal arm swing noted. -as patient fatigues patient has reduced coordination/control of L foot - Stair Negotiation Stairs: Level of Assistance: Supervision, Verbal Cues Stairs: Assistive Devices: Right Handrail Comment: 1 flight 8 inch steps with R rail on ascent and descent with step to pattern. -5 8 inch step with R rail on ascent and L rail on descent using RUE each time to mimic steps at home; side steps on descent with supervision - Standing Balance Static Stand: Supervision Comment: no device - Pain Pain (assessed during therapy session): 5 Alleviating Techniques: Heat, Position Change, Distraction, Relaxation Techniques, Exercise, Inactivity Comment: low back pain - Insight/Carryover Insight/Carryover: Fair - Patient/Family Education Comment: safety, therapy, schedule goals, POC, mobility, use of call latif, fall reduction, requesting for assistance, use of self-releasing seatbelt - Assessment/Plan Assessment: Mr. Fuchs continues to make great progress in therapy. Patient has improved safety awareness and improved safety with gait. Pt continues to require cues for energy pacing and to avoid collisions on left side. PT recom mends home discharge with intermittent supervision and supervision in the community wit home PT services. Pt returned to room at end of session with all needs met and call latif in reach; RN aware. - Goals Timeframe: 7 days Goals: I with transfers. I with gait x 500 feet. I with bed/mat mobility. mod I with steps - Provider Physical Therapist:: Jodee Angel License Number:: [id number] Occupational Therapy - Arousal/Attention/Orientation Level of Consciousness: Awake, Alert Patient Orientation: Person, Place, Time, Appropriate to Age, Appropriate to Situation Assessment Comment: -impaired LUE gross/fine motor function & motor control. - +edema in LUE. -impaired sensation L hand. -+ impulsivity. -impaired postural cntrol--standing - ADL/IADL Self Feeding: Independent, Set-up Help Grooming: Independent, Set-up Help Bathing-Upper Ext: Independent, Set-up Help Bathing-Lower Ext: Supervision, Verbal Cues, Set-up Help Dressing-Upper Ext: Independent, Set-up Help Dressing-Lower Ext: Supervision, Verbal Cues, Set-up Help Homemaking: Verbal Cues, Set-up Help, Minimal Assistance Comment: -will needs assist, supervision for bathing and meal prep. -shower chair & hand held shower to be used for showering at home - Sitting Balance Static Sitting: Independent without upper extremity support Dynamic Sitting: Reaches across midline, Reaches out of base of support, Reaches within base of support Comment: seated unsupported - Transfers Wheelchair to Bed Transfers: Supervision, Verbal Cues, Set-up Help Toilet Transfers: Supervision, Verbal Cues, Set-up Help Comment: shower transfers: Supervision and verbal cues for pacing--no assistive devices - Wheelchair Management Level of Assistance: Modified Independent, Supervision Distance (ft.): 150 - Upper Extremity Status Right Upper Extremity Comment: RUE: AROM WNLS 5/5 Left Upper Extremity Comment: PROM is WFLS,. L shoulder flex/abd: 3/5,. L elbow flex/ex: 3-/5 to 3/5. L foreram supination/pronation 3-/5 to 3/5. L wrist flex/ext: 3-/5. L dive superintendent: 3-/5, + tenodsis. Min edema t/o LUE - Pain Pain (assessed during therapy session): 5 Alleviating Techniques: Distraction, Inactivity Comment: -chronic low back pain - Insight/Carryover Insight/Carryover: Fair - Patient/Family Education Comment: *communicate with pt in Slovenian-adl, transfer/mobility training using adaptive/compensatory strategies. -LUE management/positioning, ROM/strengthening. -w/c management/propulsion. -safety awareness, use of call latif, fall prevention--seatblet alarm. -activity tolerance/endurance tasks. - *further training needed to increase carryover - Assessment/Plan Assessment: Pt is a 57 year old Slovenian speaking R handed male with dx: acute CVA, L hemiparesis. Precautions: falls(w/c alarm & bed alrams), L laptray prn , aspiration precautions(thins/finely chopped), + impulsivity. Pt with the following limitations: -+impulsivity. -impaired standing balance/tolerance. - impaired strength/motor control/AROM in LUE t/o more distally. -+chronic back pain. -impaired attention. -impaired sensation L digit/thumb. -impaired safety awareness. -impaired knowledge of adaptive/compensatory strategies. - +edema in LUE t/o. -impaired endurance/activity tolerance. -imapired cognition--which impact self care, transfers/mobility, Iadls. Pt will continue to benefit skilled Occupational Therapy to address functional impairments as needed to complete self care, transfers/Iadls with greater safety/I for transition home with services. Pt continues to demonstrate increase AROM/function/strength in LUE throughout along with decreased overall edema, increase postural control/balance, increase overall function in self care, transfers/mobility. Pt better able to pace self with daily tasks thus needs less prompting to slow down. Pt now more receptive to reaching out to friends/family for assistance for support upon discharge home. Pt may benefit from psychology consult for mood and to learn coping strategies dealing with current health issues. Pt responds well to pain meds for chronic low back pain. *Goal: Intermittent Supervision for self care, transfers/mobility and light homemaking skills with assistive device, compensatory strategies. - Goals Timeframe: 3 days Comment: *FEEDING: Mod I. *GROOMING: Mod I standing at sink. *UPPER BODY DRESSNG: MOD I--hemitechniques. *LOWER BODY DRESSING: Mod I. *TOILETING: Mod I. *TRANSFERS:<->bed, commode, chair and other surfaces with Mod I. *LUE STRENGTH: Increase strength 3/5 to 3+/5 throughout LUE for improve adl function. *LIGHT HOMEMAKING SKILLS: Supervision assist and verbal cues. *GATHER/TRANSPORT ITEMS from closet, drawer with Distant S/Mod I and verbal cues in prep for self care. *W/C MANAGEMENT/PROPULSION: 150 feet with Mod I, manage B brakes with S for safety. *CAREGIVER ED: Pt's caregiver to be I assisting/cueing pt with daily living tasks - Provider Occupational Therapist:: Blank Lama License Number: [id number] Speech Therapy - Consult Information Patient on Program: Yes Medical Diagnosis: CVA Treatment Diagnosis: mild cognitive deficits - Assessment Problem Solving Impairment: Mild Memory Impairment: Moderate - Plan Assessment: Gary Fuchs presents with mild cognitive deficits characterized by impaired short-term recall, thought organization, problem solving, and reasoning; he has demonstrated improved insight into his deficits overall. Pt's speech intelligibility is now judged to be WFL; although he does still present with L sided oral motor weakness, this is not impacting his articulatory precision and the pt expresses his wants/needs/ideas effectively and intelligibly. Pt has also demonstrated improved swallow function and is tolerating a regular diet without overt s/s aspiration/dysphagia; he will therefore be discharged from dysphagia tx. Pt would benefit from continued skilled speech tx for improved cognition and memory for functional independence. Plan: Continue Speech/Language Therapy, Discharge Dysphagia Therapy Frequency: 3-5 times per week Duration: 1 week Goals/Timeframe: Please see progress note dated 04/21/18 for updated goals/POC Recommendations: -Continue speech tx 3-5x/week for improved cognition. - Discharge dysphagia tx. -Regular diet/thin liquids - Provider Therapist: Caryn Duque License Number: [id number] Recreational Therapy - Participation Participation: Participates in Individual and/or Group Sessions, Monitors His/Her Own Leisure Time - Attendance Attendance: 3-5 times per week - Activities Leisure Activities: Cards and Games - Socialization Level of Socialization: Initiates/interacts freely with care givers and peer - Diversional Time Diversional Time: listening to music, singing, plays dominoes - Assessment Assessment/Plan: Pt continues to be agreeable to participate in 1:1 and group recreation therapy sessions offered on unit. Pt was oriented to connect four task and enjoys participating in dominoes task. Pt expresses concern about his L UE weakness and will utilize his L hand during tasks such as shuffling dominoes/game pieces. Pt demonstrates improved visual scanning on both L and R side of tasks. Pt's mood is stable-positive and during his free time is seen watching/listening to music videos on [employer] and singing the lyrics. Pt will continue to benefit from participating in recreation therapy sessions. Problems Currently Limiting Participation: L side weakness, decrease leisure awareness level, impaired safety insight, pain Goals and Time Frame: Pt will be encouraged to participate in 1:1 and group recreation therapy session and tolerate session for at least 20 minutes daily to improve on leisure awareness level, safety insight, and direction following by date of discharge. - Provider Therapist: Karely Boucher Nutrition - Current Diet Current Diet/Supplement/Feedings: Moderate consistent CHO heart healthy diet - Appetite Percent Meal Consumed: 75-100% - Assessment/Goals/Time Frame Assessments/Goals/Time Frame: Pt at moderate nutritional risk. goals: 1. Pt to consume 75-100% of meals(partially met, continue). 2. Blood glucoses to be between 70-180 mg/dl(met, continue). Follow-up due on 04/22/2018 - Provider Provider: Hannah Aguirre Case Management - Psychosocial Assessment Support Systems: Esteban baltazar) - [phone] Psychological Interventions/Needs: Patient is AAO and able to verbalize needs. Patient demonstates poor insight for safety. Discharge Concerns: Patient lives alone. Patient/Family Meeting: CM met with patient and rehab team. Intervention/Goal/Outcome: 1. Goal: Intermittent Supervision 2. Plan: home with [facility] and oil heaterman [facility]ORY [facility]N services. [facility]. [facility]. follow up with [facility] for [facility] services 5. solidify transport for day of discharge - Discharge Plan Discharge Plan: Home with services Home Services: [facility] and [facility] assisted care agency - Provider Provider: Shanelle Chisholm License Number: [id number] Rehabilitation Plan - Treatment Plan Treatment Plan: Physical Therapy, Occupational Therapy, Speech, Dietary, Patient/Family Education - Discharge Plan Estimated Date of Discharge: 04/24/18 Discharge to: Home
--- NOTE | 2018-04-22 13:33 | CP.PCM.PN ---
Subjective - Date & Time of Evaluation Date of Evaluation: 04/22/18 Time of Evaluation: 13:33 - Subjective Subjective: Patient seen in the room denies any sob/cp doing well and notes that he can do things much quicker and for longer distances pain is controlled continue current care Objective - Vital Signs/Intake and Output Vital Signs (last 24 hours): Temp Pulse Resp BP Pulse Ox 97.3 F L 77 22 147/99 H 97 04/22/18 09:00 04/22/18 09:00 04/22/18 09:00 04/22/18 09:00 04/22/18 08:16 - Medications Medications: Current Medications Acetaminophen (Tylenol 325mg Tab) 650 mg PO Q4 PRN PRN Reason: Fever >100.4 F Last Admin: 04/10/18 11:12 Dose: 650 mg Acetaminophen (Tylenol 325mg Tab) 650 mg PO Q4 PRN PRN Reason: Pain, Mild (1-3) Amlodipine Besylate (Norvasc) 10 mg PO DAILY [facility] Last Admin: 04/22/18 08:26 Dose: 10 mg Aspirin (Aspirin Chewable) 81 mg PO DAILY [facility] Last Admin: 04/22/18 08:25 Dose: 81 mg Atorvastatin Calcium (Lipitor) 40 mg PO DAILY [facility] Last Admin: 04/22/18 08:27 Dose: 40 mg Clonidine HCl (Catapres) 0.2 mg PO BID PRN PRN Reason: Systolic Blood Pressure Last Admin: 04/16/18 22:00 Dose: 0.2 mg Clopidogrel Bisulfate (Plavix) 75 mg PO DAILY [facility] Last Admin: 04/22/18 08:27 Dose: 75 mg Docusate Sodium (Colace) 100 mg PO BID [facility] Last Admin: 04/22/18 08:24 Dose: 100 mg Enoxaparin Sodium (Lovenox) 40 mg SC DAILY [facility]; Protocol Last Admin: 04/22/18 08:24 Dose: 40 mg Fluoxetine HCl (Prozac) 20 mg PO DAILY [facility] Last Admin: 04/22/18 08:30 Dose: 20 mg Insulin Human Lispro (Humalog) 0 units SC ACBD [facility]; Protocol Last Admin: 04/22/18 06:37 Dose: Not Given Losartan Potassium (Cozaar) 50 mg PO DAILY [facility] Last Admin: 04/22/18 08:26 Dose: 50 mg Magnesium Hydroxide (Milk Of Magnesia) 30 ml PO DAILY PRN PRN Reason: Constipation Last Admin: 04/14/18 19:45 Dose: 30 ml Metformin HCl (Glucophage) 500 mg PO BIDWM [facility] Last Admin: 04/22/18 08:25 Dose: 500 mg Metoprolol Tartrate (Lopressor) 50 mg PO Q12 [facility] Last Admin: 04/22/18 08:25 Dose: 50 mg Multivitamins/Minerals (Therapeutic-M Tab) 1 tab PO DAILY [facility] Last Admin: 04/22/18 08:24 Dose: 1 tab Oxycodone/Acetaminophen (Percocet 5/325 Mg Tab) 1 tab PO Q6 PRN PRN Reason: pain (scale 8-10) Stop: 04/22/18 20:59 Last Admin: 04/22/18 10:06 Dose: 1 tab Pantoprazole Sodium (Protonix Ec Tab) 40 mg PO DAILY [facility] Last Admin: 04/22/18 08:30 Dose: 40 mg Quetiapine Fumarate (Seroquel) 100 mg PO HS [facility] Last Admin: 04/21/18 21:23 Dose: 100 mg Tramadol HCl (Ultram) 50 mg PO Q6 PRN PRN Reason: 4-7/10 pain - Labs Labs: 04/22/18 05:20 04/22/18 05:20 PT 12.9 Seconds (9.8-13.1) 04/10/18 06:00 INR 1.1 04/10/18 06:00 APTT 36.7 Seconds (25.6-37.1) 04/10/18 06:00
[2018-04-23] MEDS: Insulin Lispro (humaLOG) 100 Units/ml Inj SC SCH ×2 (06:35→17:12)
[2018-04-23] MEDS: Multivitamin With Minerals Tab PO SCH (09:14)
[2018-04-23] MEDS: Pantoprazole 40 mg EC Tab PO SCH (09:15)
[2018-04-23] MEDS: Enoxaparin 40 mg Syringe SC SCH (09:18)
--- NOTE | 2018-04-23 13:35 | CP.PCM.PN ---
Subjective - Date & Time of Evaluation Date of Evaluation: 04/23/18 Time of Evaluation: 11:30 - Subjective Subjective: Patient was seen and examined. All chart and clinical data reviewed . Feeling better . Participating with PT Still with some weakness to LUE Hemodynamically stable, afebrile No acute issues overnight For discharge tomorrow in AM Objective - Vital Signs/Intake and Output Vital Signs (last 24 hours): Temp Pulse Resp BP Pulse Ox 98.1 F 89 21 161/99 H 98 04/23/18 08:11 04/23/18 09:15 04/23/18 08:11 04/23/18 09:15 04/23/18 08:11 - Medications Medications: Current Medications Acetaminophen (Tylenol 325mg Tab) 650 mg PO Q4 PRN PRN Reason: Fever >100.4 F Last Admin: 04/10/18 11:12 Dose: 650 mg Acetaminophen (Tylenol 325mg Tab) 650 mg PO Q4 PRN PRN Reason: Pain, Mild (1-3) Amlodipine Besylate (Norvasc) 10 mg PO DAILY [facility] Last Admin: 04/23/18 09:14 Dose: 10 mg Aspirin (Aspirin Chewable) 81 mg PO DAILY [facility] Last Admin: 04/23/18 09:14 Dose: 81 mg Atorvastatin Calcium (Lipitor) 40 mg PO DAILY [facility] Last Admin: 04/23/18 09:18 Dose: 40 mg Clonidine HCl (Catapres) 0.2 mg PO BID PRN PRN Reason: Systolic Blood Pressure Last Admin: 04/23/18 09:15 Dose: 0.2 mg Clopidogrel Bisulfate (Plavix) 75 mg PO DAILY [facility] Last Admin: 04/23/18 09:14 Dose: 75 mg Docusate Sodium (Colace) 100 mg PO BID [facility] Last Admin: 04/23/18 09:11 Dose: 100 mg Enoxaparin Sodium (Lovenox) 40 mg SC DAILY [facility]; Protocol Last Admin: 04/23/18 09:18 Dose: 40 mg Fluoxetine HCl (Prozac) 20 mg PO DAILY [facility] Last Admin: 04/23/18 09:13 Dose: 20 mg Insulin Human Lispro (Humalog) 0 units SC ACBD [facility]; Protocol Last Admin: 04/23/18 06:35 Dose: Not Given Losartan Potassium (Cozaar) 50 mg PO DAILY [facility] Last Admin: 04/23/18 09:13 Dose: 50 mg Magnesium Hydroxide (Milk Of Magnesia) 30 ml PO DAILY PRN PRN Reason: Constipation Last Admin: 04/14/18 19:45 Dose: 30 ml Metformin HCl (Glucophage) 500 mg PO BIDWM [facility] Last Admin: 04/23/18 09:00 Dose: 500 mg Metoprolol Tartrate (Lopressor) 50 mg PO Q12 [facility] Last Admin: 04/23/18 09:11 Dose: 50 mg Multivitamins/Minerals (Therapeutic-M Tab) 1 tab PO DAILY [facility] Last Admin: 04/23/18 09:14 Dose: 1 tab Pantoprazole Sodium (Protonix Ec Tab) 40 mg PO DAILY [facility] Last Admin: 04/23/18 09:15 Dose: 40 mg Quetiapine Fumarate (Seroquel) 100 mg PO HS [facility] Last Admin: 04/22/18 21:33 Dose: 100 mg Tramadol HCl (Ultram) 50 mg PO Q6 PRN PRN Reason: 4-7/10 pain Last Admin: 04/23/18 09:09 Dose: 50 mg - Labs Labs: 04/22/18 05:20 04/22/18 05:20 PT 12.9 Seconds (9.8-13.1) 04/10/18 06:00 INR 1.1 04/10/18 06:00 APTT 36.7 Seconds (25.6-37.1) 04/10/18 06:00 - Constitutional Appears: Non-toxic, No Acute Distress - Head Exam Head Exam: ATRAUMATIC, NORMAL INSPECTION, NORMOCEPHALIC - Eye Exam Eye Exam: EOMI, Normal appearance, PERRL Pupil Exam: NORMAL ACCOMODATION - ENT Exam ENT Exam: Mucous Membranes Moist, Normal Exam - Neck Exam Neck Exam: Full ROM, Normal Inspection - Respiratory Exam Respiratory Exam: Clear to Ausculation Bilateral, NORMAL BREATHING PATTERN. absent: Rhonchi, Wheezes - Cardiovascular Exam Cardiovascular Exam: REGULAR RHYTHM, RRR, +S1, +S2. absent: JVD - GI/Abdominal Exam GI & Abdominal Exam: Soft, Normal Bowel Sounds. absent: Distended, Guarding, Rebound - Rectal Exam Rectal Exam: Deferred - Extremities Exam Extremities Exam: Full ROM, Normal Capillary Refill, Normal Inspection. absent: Pedal Edema - Back Exam Back Exam: NORMAL INSPECTION - Neurological Exam Neurological Exam: Alert, Awake, CN II-XII Intact, Oriented x3 Neuro motor strength exam: Left Upper Extremity: 4, Right Upper Extremity: 5, Left Lower Extremity: 5, Right Lower Extremity: 5 - Psychiatric Exam Psychiatric exam: Normal Affect, Normal Mood - Skin Skin Exam: Dry, Normal Color, Warm Assessment and Plan - Assessment and Plan (Free Text) Assessment: 57 years old male transferred from the [facility]. He has hx of DM, HTN and was admitted at the [facility] on 04/05/18 with diagnosis of acute CVA and left side weakness. At present he is doing well, participating with PT and improving. 1. Acute right Basal ganglia CVA Participating with PT and improving on ASA and Plavix For 20 days, then continue with ASA as monotherapy indefinitely Continue Atorvastatin Follow up with Neurology Dr Borja after discharge 2. HTN better controlled continue Metoprolol/ Losartan/ Norvasc 3. DM II controlled Lispro sliding scale according to Accucheck ACHS on Metformin 4. HLD on Atorvastatin 5. Depression on Prozac/ Seroquel 6.DVT Prophylaxis Lovenox
--- NOTE | 2018-04-23 17:03 | CP.PCM.PN ---
Subjective - Date & Time of Evaluation Date of Evaluation: 04/23/18 Time of Evaluation: 17:03 - Subjective Subjective: Patient seen in the room doing very well no pain looking forward to d/c home tomorrow continue current care Objective - Vital Signs/Intake and Output Vital Signs (last 24 hours): Temp Pulse Resp BP Pulse Ox 98.1 F 89 21 161/99 H 98 04/23/18 08:11 04/23/18 09:15 04/23/18 08:11 04/23/18 09:15 04/23/18 08:11 - Medications Medications: Current Medications Acetaminophen (Tylenol 325mg Tab) 650 mg PO Q4 PRN PRN Reason: Fever >100.4 F Last Admin: 04/10/18 11:12 Dose: 650 mg Acetaminophen (Tylenol 325mg Tab) 650 mg PO Q4 PRN PRN Reason: Pain, Mild (1-3) Amlodipine Besylate (Norvasc) 10 mg PO DAILY [facility] Last Admin: 04/23/18 09:14 Dose: 10 mg Aspirin (Aspirin Chewable) 81 mg PO DAILY [facility] Last Admin: 04/23/18 09:14 Dose: 81 mg Atorvastatin Calcium (Lipitor) 40 mg PO DAILY [facility] Last Admin: 04/23/18 09:18 Dose: 40 mg Clonidine HCl (Catapres) 0.2 mg PO BID PRN PRN Reason: Systolic Blood Pressure Last Admin: 04/23/18 09:15 Dose: 0.2 mg Clopidogrel Bisulfate (Plavix) 75 mg PO DAILY [facility] Last Admin: 04/23/18 09:14 Dose: 75 mg Docusate Sodium (Colace) 100 mg PO BID [facility] Last Admin: 04/23/18 09:11 Dose: 100 mg Enoxaparin Sodium (Lovenox) 40 mg SC DAILY [facility]; Protocol Last Admin: 04/23/18 09:18 Dose: 40 mg Fluoxetine HCl (Prozac) 20 mg PO DAILY [facility] Last Admin: 04/23/18 09:13 Dose: 20 mg Insulin Human Lispro (Humalog) 0 units SC BD [facility]; Protocol Last Admin: 04/23/18 06:35 Dose: Not Given Losartan Potassium (Cozaar) 50 mg PO DAILY [facility] Last Admin: 04/23/18 09:13 Dose: 50 mg Magnesium Hydroxide (Milk Of Magnesia) 30 ml PO DAILY PRN PRN Reason: Constipation Last Admin: 04/14/18 19:45 Dose: 30 ml Metformin HCl (Glucophage) 500 mg PO BIDWM [facility] Last Admin: 04/23/18 09:00 Dose: 500 mg Metoprolol Tartrate (Lopressor) 50 mg PO Q12 [facility] Last Admin: 04/23/18 09:11 Dose: 50 mg Multivitamins/Minerals (Therapeutic-M Tab) 1 tab PO DAILY [facility] Last Admin: 04/23/18 09:14 Dose: 1 tab Pantoprazole Sodium (Protonix Ec Tab) 40 mg PO DAILY [facility] Last Admin: 04/23/18 09:15 Dose: 40 mg Quetiapine Fumarate (Seroquel) 100 mg PO HS [facility] Last Admin: 04/22/18 21:33 Dose: 100 mg Tramadol HCl (Ultram) 50 mg PO Q6 PRN PRN Reason: 4-7/10 pain Last Admin: 04/23/18 09:09 Dose: 50 mg - Labs Labs: 04/22/18 05:20 04/22/18 05:20 PT 12.9 Seconds (9.8-13.1) 04/10/18 06:00 INR 1.1 04/10/18 06:00 APTT 36.7 Seconds (25.6-37.1) 04/10/18 06:00
[2018-04-24] MEDS: Insulin Lispro (humaLOG) 100 Units/ml Inj SC SCH (07:12)
[2018-04-24] MEDS: Enoxaparin 40 mg Syringe SC SCH (08:22)
[2018-04-24 08:23] VITALS: BP 152/98; PULSE 66
[2018-04-24] MEDS: Multivitamin With Minerals Tab PO SCH (08:23)
[2018-04-24] MEDS: Pantoprazole 40 mg EC Tab PO SCH (08:23)
[2018-04-24 08:28] VITALS: RESP 19; TEMP 97.8; O2SAT 100
--- NOTE | 2018-04-24 12:23 | CP.PCM.DIS ---
Provider - Provider Date of Admission: 04/09/18 21:03 Attending physician: Dhruv Peck Consults: 04/09/18 21:20 Physiatry Consult Routine Comment: Consulting Provider: Caden Bradley Consulting Physician: Caden Bradley Reason for Consult: Acute CVA with left side weakness 04/10/18 01:35 Pharmacist Consult As Ordered Comment: Physician Instructions: Reason For Exam: on Lovenox 04/10/18 08:30 Case Management Referral Routine Comment: Physician Instructions: Reason For Exam: for discharge planning Reason for Referral: Discharge Planning Social Work Referral Routine Comment: per patient Physician Instructions: Reason For Exam: smoke marijuana(cannadis);hx heavy ETOH Time Spent in preparation of Discharge (in minutes): 30 Hospital Course - Lab Results Lab Results: Micro Results 04/11/18 08:00 Urine,Clean Catch Urine Culture - Final No Growth (<1,000 CFU/ML) Most Recent Lab Values WBC 7.8 K/uL (4.8-10.8) 04/22/18 05:20 RBC 4.14 Mil/uL (4.40-5.90) L 04/22/18 05:20 Hgb 13.0 g/dL (12.0-18.0) 04/22/18 05:20 Hct 38.1 % (35.0-51.0) 04/22/18 05:20 MCV 92.0 fl (80.0-94.0) 04/22/18 05:20 MCH 31.3 pg (27.0-31.0) H 04/22/18 05:20 MCHC 34.0 g/dL (33.0-37.0) 04/22/18 05:20 RDW 13.7 % (11.5-14.5) 04/22/18 05:20 Plt Count 184 K/uL (130-400) 04/22/18 05:20 MPV 9.3 fl (7.2-11.7) 04/10/18 06:00 Neut % (Auto) 77.9 % (50.0-75.0) H 04/10/18 06:00 Lymph % (Auto) 12.4 % (20.0-40.0) L 04/10/18 06:00 [place] % (Auto) 8.1 % (0.0-10.0) 04/10/18 06:00 Eos % (Auto) 1.2 % (0.0-4.0) 04/10/18 06:00 Baso % (Auto) 0.4 % (0.0-2.0) 04/10/18 06:00 Neut # (Auto) 9.7 K/uL (1.8-7.0) H 04/10/18 06:00 Lymph # (Auto) 1.5 K/uL (1.0-4.3) 04/10/18 06:00 [place] # (Auto) 1.0 K/uL (0.0-0.8) H 04/10/18 06:00 Eos # (Auto) 0.2 K/uL (0.0-0.7) 04/10/18 06:00 Baso # (Auto) 0.0 K/uL (0.0-0.2) 04/10/18 06:00 PT 12.9 Seconds (9.8-13.1) 04/10/18 06:00 INR 1.1 04/10/18 06:00 APTT 36.7 Seconds (25.6-37.1) 04/10/18 06:00 Sodium 140 mmol/l (132-148) 04/22/18 05:20 Potassium 4.2 MMOL/L (3.6-5.0) 04/22/18 05:20 Chloride 97 mmol/L (98-107) L 04/22/18 05:20 Carbon Dioxide 30 mmol/L (22-30) 04/22/18 05:20 Anion Gap 17 (10-20) 04/22/18 05:20 BUN 16 mg/dl (9-20) 04/22/18 05:20 Creatinine 1.0 mg/dl (0.8-1.5) 04/22/18 05:20 Est GFR ( Amer) > 60 04/22/18 05:20 Est GFR (Non-Af Amer) > 60 04/22/18 05:20 POC Glucose (mg/dL) 106 mg/dL (65-110) 04/24/18 06:04 Random Glucose 107 mg/dL (75-110) 04/22/18 05:20 Calcium 9.3 mg/dL (8.4-10.2) 04/22/18 05:20 Urine Color Yellow (YELLOW) 04/11/18 08:00 Urine Clarity Slighty-cloudy (Clear) 04/11/18 08:00 Urine pH 5.0 (5.0-8.0) 04/11/18 08:00 Ur Specific [place] 1.030 (1.003-1.030) 04/11/18 08:00 Urine Protein 30 mg/dL (NEGATIVE) 04/11/18 08:00 Urine Glucose (UA) Neg mg/dL (NEGATIVE) 04/11/18 08:00 Urine Ketones Negative mg/dL (NEGATIVE) 04/11/18 08:00 Urine Blood Negative (NEGATIVE) 04/11/18 08:00 Urine Nitrate Negative (NEGATIVE) 04/11/18 08:00 Urine Bilirubin Negative (NEGATIVE) 04/11/18 08:00 Urine Urobilinogen 0.2-1.0 mg/dL (0.2-1.0) 04/11/18 08:00 Ur Leukocyte Esterase Neg Maxi/uL (Negative) 04/11/18 08:00 Urine RBC (Auto) 1 /hpf (0-3) 04/11/18 08:00 Urine Microscopic WBC 4 /hpf (0-5) 04/11/18 08:00 Hyaline Casts 0-2 /hpf (0-2) 04/11/18 08:00 - Hospital Course Hospital Course: 57 years old male transferred from the [facility]. He has hx of DM, HTN and was admitted at the [facility] on 04/05/18 with diagnosis of acute CVA and left side weakness. At present he is doing well, participating with PT and improving. Stable for discharge home with follow up neuro and pcp in one week. 1. Acute right Basal ganglia CVA Participating with PT and improving on ASA and Plavix For 20 days, then continue with ASA as monotherapy indefinitely Continue Atorvastatin Follow up with Neurology Dr Borja after discharge 2. HTN better controlled continue Metoprolol/ Losartan/ Norvasc 3. DM II controlled Lispro sliding scale according to Accucheck ACHS on Metformin 4. HLD on Atorvastatin 5. Depression on Prozac/ Seroquel 6.DVT Prophylaxis Lovenox Discharge Exam - Head Exam Additional comments: GEN: WDWN, alert, cooperative HEENT: NCAT, PERRL, EOMI HEART: RRR, +S1S2, NO MRG LUNG: CTAB, NO WRR ABD: soft, NT, ND, No HSM, No masses EXT: normal pedal pulses NEURO: awake, alert SKIN: warm, dry PSYCH: normal mood, normal affect Discharge Plan - Discharge Medications Prescriptions: amLODIPine [Norvasc] 10 mg PO DAILY #30 tab Aspirin [Aspirin Chewable] 81 mg PO DAILY #30 chew Atorvastatin [Lipitor] 40 mg PO DAILY #30 tab cloNIDine [Catapres] 0.2 mg PO Q12 #60 tab Clopidogrel [Plavix] 75 mg PO DAILY #30 tab Docusate [Colace] 100 mg PO BID #60 cap FLUoxetine [Prozac] 20 mg PO DAILY #30 cap Losartan [Cozaar] 25 mg PO DAILY #30 tab metFORMIN [glucOPHAGE] 500 mg PO BIDWM #30 tab Metoprolol Tartrate [Lopressor] 50 mg PO Q12 #60 tab Multimineral/Multivitamin [Therapeutic-M Tab] 1 tab PO DAILY #30 tab QUEtiapine [Seroquel] 100 mg PO HS #30 tab - Follow Up Plan Condition: GOOD Disposition: HOME/ ROUTINE Additional Instructions: FOLLOW UP NEUROLOGY AND PCP
== END 2018-04-24 15:26 | disposition home health service (06) | DRG 12 ==
PROVIDERS: ADMIT Internal Medicine; ATTEND Internal Medicine
PROC: F07Z9FZ Gait Training/Functional Ambulation Treatment using Assistive, Adaptive, Supportive or Protective Equipment (ICD-10-PCS; principal; 2018-04-09)
PROC: F06Z6MZ Communicative/Cognitive Integration Skills Treatment using Augmentative / Alternative Communication Equipment (ICD-10-PCS; 2018-04-09)
PROC: F08Z4FZ Home Management Treatment using Assistive, Adaptive, Supportive or Protective Equipment (ICD-10-PCS; 2018-04-09)
PROC: F07M6FZ Therapeutic Exercise Treatment of Musculoskeletal System - Whole Body using Assistive, Adaptive, Supportive or Protective Equipment (ICD-10-PCS; 2018-04-09)
PROC: F06ZDMZ Swallowing Dysfunction Treatment using Augmentative / Alternative Communication Equipment (ICD-10-PCS; 2018-04-10)
DX: I69.354 Hemiplegia and hemiparesis following cerebral infarction affecting left non-dominant side (principal); I69.392 Facial weakness following cerebral infarction; I10 Essential (primary) hypertension; I69.322 Dysarthria following cerebral infarction; I69.391 Dysphagia following cerebral infarction; R13.19 Other dysphagia; F12.90 Cannabis use, unspecified, uncomplicated; E11.9 Type 2 diabetes mellitus without complications; E78.5 Hyperlipidemia, unspecified; E78.00 Pure hypercholesterolemia, unspecified; F32.9 Major depressive disorder, single episode, unspecified; K59.00 Constipation, unspecified; F41.9 Anxiety disorder, unspecified; Z87.891 Personal history of nicotine dependence; Z79.84 Long term (current) use of oral hypoglycemic drugs